=== PATIENT | male | born 1950 | race Caucasian/White ===

== ENCOUNTER → 2016-07-10 07:57 | Outpatient (CLI) | payer MEDICARE, MEDICAID ==
[2016-04-24 12:49] VITALS: BMI 22.9
[~2016-07-10 07:57] MED LIST: BAYER CHEWABLE81 MG PO; DEPAKOTE500 MG PO; ELAVIL25 MG; ELAVIL25 MG PO; FERROUS SULFAT325 MG PO; GLUCOPHAGE500 MG PO; HYDROCODONE-APA1 TAB PO; KEPPRA500 MG PO; MAXALT10 MG PO; MYSOLINE 50 MG50 MG PO; NEURONTIN600 MG; NEURONTIN600 MG PO; NITROQUICK0.4 MG SL; PERCOCET 10/3251 TA1 PO; PLAVIX75 MG PO; PROTONIX40 MG PO; SINGULAIR10 MG PO; TENORETIC 50 TA1 TAB PO; TENORMIN50 MG PO; TOPAMAX25 MG PO; TOPROL XL25 MG PO; ZANAFLEX4 MG PO; ZYPREXA15 MG PO
== END | disposition home or self-care (01) ==
LOC: D.RAD 07:57
DX: Z86.010 Personal history of colon polyps (principal)

== ENCOUNTER 2016-07-14 17:54 | Emergency (ER) | payer MEDICARE, MEDICAID ==
[2016-04-24 12:49] VITALS: BMI 22.9
[~2016-07-14 17:54] MED LIST changes: -FERROUS SULFAT325 MG PO
[2016-07-14 19:00] LABS: BASOPHILS 0.4 % (0.0-2.0); EOSINOPHILS 3.4 % (0-7); HEMATOCRIT 34.4 % (42.0-54.0); HEMOGLOBIN 10.9 g/dL (13.5-17.5); IMMATURE GRANULOCYTES 0.3 % (0-5); LYMPHOCYTES 32.7 % (15-50); MCH 26.1 pg (26.0-34.0); MCHC 31.7 g/dL (31.0-37.0); MCV 82.3 fL (80.0-100.0); MEAN PLATELET VOLUME 9.6 fL (7.4-10.4); MONOCYTES 10.3 % (2-11); NEUTROPHILS 52.9 % (40-80); PLATELET COUNT 269 10x3/uL (130-400); RBC 4.18 10x6/uL (4.20-6.10); RDW 17.4 % (11.5-14.5); WBC 6.8 10x3/uL (4.8-10.8)
[2016-07-14 19:39] LABS: ALBUMIN 3.4 g/dL (3.4-5.0); ALKALINE PHOSPHATASE 84 U/L (46-116); ALT (SGPT) 26 U/L (10-68); BILIRUBIN - TOTAL 0.25 mg/dL (0.2-1.3); CARBON DIOXIDE 30.2 mmol/L (21.0-32.0); CHLORIDE - SERUM 99 mmol/L (98-107); CREATININE - SERUM 0.9 mg/dL (0.6-1.3); POTASSIUM - SERUM 3.9 mmol/L (3.5-5.1); PROTEIN - SERUM 6.8 g/dL (6.4-8.2); SODIUM 135 mmol/L (136-145); UREA NITROGEN 7 mg/dL (7-18); eGFR NON AFRICAN AMERICAN > 90 mL/min (90-120)
[2016-07-14 19:43] LABS: CHOL - HDL RATIO 2.1 ratio (2.3-4.9); CHOLESTEROL, TOTAL 97 mg/dL (0-200); CKMB 0.9 U/L (0.0-3.6); CREATINE KINASE 99 UL (21-232); HDL CHOLESTEROL 46 mg/dL (32-96); LDL CHOLESTEROL 41 mg/dL (0-100); LDL-HDL RATIO 0.9 ratio (1.5-3.5); PRO BNP 490 pg/mL (0-125); TRIGLYCERIDE 52 mg/dL (30-200)
[2016-07-14 19:45] LABS: CALC OSMOLALITY 265 mosm/kg (275-300); TROPONIN-I < 0.017 ng/mL (0.000-0.060)
[2016-07-14 19:46] LABS: GLUCOSE 63 mg/dL (74-106)
[2016-07-14 20:13] LABS: APPEARANCE CLEAR (CLEAR); BILIRUBIN NEGATIVE (NEGATIVE); COLOR YELLOW (YELLOW); GLUCOSE NEGATIVE (NEGATIVE); KETONE NEGATIVE (NEGATIVE); LEUKOCYTE ESTERASE NEGATIVE (NEGATIVE); NITRITE NEGATIVE (NEGATIVE); PROTEIN NEGATIVE (NEGATIVE); UROBILINOGEN NORMAL (NORMAL)
== END 2016-07-14 22:08 | disposition home or self-care (01) ==
LOC: D.ER 17:54
PROVIDERS: Emergency Medicine; Physician Assistant
DX: R07.9 Chest pain, unspecified (principal); R05 Cough; E11.9 Type 2 diabetes mellitus without complications; I24.9 Acute ischemic heart disease, unspecified; I25.10 Atherosclerotic heart disease of native coronary artery without angina pectoris; F17.200 Nicotine dependence, unspecified, uncomplicated

== ENCOUNTER 2016-09-07 16:42 | Emergency (ER) | payer MEDICARE, MEDICAID ==
[2016-04-24 12:49] VITALS: BMI 22.9
[2016-09-07 18:17] LABS: BASOPHILS 0.3 % (0.0-2.0); EOSINOPHILS 1.7 % (0-7); HEMATOCRIT 33.6 % (42.0-54.0); HEMOGLOBIN 10.7 g/dL (13.5-17.5); IMMATURE GRANULOCYTES 0.2 % (0-5); LYMPHOCYTES 16.8 % (15-50); MCH 25.4 pg (26.0-34.0); MCHC 31.8 g/dL (31.0-37.0); MCV 79.6 fL (80.0-100.0); MEAN PLATELET VOLUME 9.2 fL (7.4-10.4); PLATELET COUNT 262 10x3/uL (130-400); RBC 4.22 10x6/uL (4.20-6.10); RDW 18.6 % (11.5-14.5); WBC 11.6 10x3/uL (4.8-10.8)
[2016-09-07 18:35] LABS: ALBUMIN 3.5 g/dL (3.4-5.0); ALKALINE PHOSPHATASE 88 U/L (46-116); ALT (SGPT) 17 U/L (10-68); BILIRUBIN - TOTAL 0.26 mg/dL (0.2-1.3); CALC OSMOLALITY 255 mosm/kg (275-300); CALCIUM 8.5 mg/dL (8.5-10.1); CARBON DIOXIDE 26.9 mmol/L (21.0-32.0); CHLORIDE - SERUM 95 mmol/L (98-107); CREATININE - SERUM 0.9 mg/dL (0.6-1.3); GLUCOSE 82 mg/dL (74-106); PROTEIN - SERUM 6.8 g/dL (6.4-8.2); SODIUM 129 mmol/L (136-145); UREA NITROGEN 6 mg/dL (7-18); eGFR NON AFRICAN AMERICAN > 90 mL/min (90-120)
[2016-09-07 18:42] LABS: CHOLESTEROL, TOTAL 85 mg/dL (0-200); CKMB 0.9 U/L (0.0-3.6); CREATINE KINASE 95 UL (21-232); HDL CHOLESTEROL 42 mg/dL (32-96); LDL CHOLESTEROL 30 mg/dL (0-100); LDL-HDL RATIO 0.7 ratio (1.5-3.5); TRIGLYCERIDE 68 mg/dL (30-200); TROPONIN-I < 0.017 ng/mL (0.000-0.060)
== END 2016-09-07 20:40 | disposition home or self-care (01) ==
LOC: D.ER 16:42
PROVIDERS: Emergency Medicine
DX: R07.9 Chest pain, unspecified (principal); I25.10 Atherosclerotic heart disease of native coronary artery without angina pectoris; D64.9 Anemia, unspecified; J45.909 Unspecified asthma, uncomplicated; I24.9 Acute ischemic heart disease, unspecified; E11.9 Type 2 diabetes mellitus without complications; F17.200 Nicotine dependence, unspecified, uncomplicated

== ENCOUNTER 2016-10-03 10:50 | Outpatient (CLI) | payer MEDICARE, MEDICAID ==
[~2016-10-03] VITALS: Ht 167.6 cm; Wt 72.7 kg
--- NOTE | ~2016-10-03 | HEMODYNAMI ---
PATIENT:SUNITHA DELGADO MEDICAL RECORD: [id number] : 54 LOCATION:NATE ADMISSION DATE: 10/03/16 Generatedon:10/03/201613:49 Patient name: SUNITHA DELGADO Patient #: [id number] SSN: : 1950 Date of study: 10/03/2016 Page: Of Hemodynamic Procedure Report Patient Data Patient Demographics Procedure consent was obtained First Name: SUNITHA Gender: Male Last Name: DANNY : 1950 [facility] Initial: L Age: 65 year(s) Patient #: [id number] Race: Additional ID: [id number] Contact details Address: [address] [place] [address] State: [place] City: [facility] Zip code: [address] Past Medical History History of disease Date Diagnosis Comments CAD CHF Chronic lung disease Allergies: No known allergies Admission Admission Data Admission Date: 10/03/2016 Admission Time: 10:50 Procedure Procedure Types Cath Procedure Diagnostic Procedure C LHC w/Coronaries Miscellaneous Procedures Moderate Sedation up to 15 minutes Procedure Description Procedure Date Procedure Date: 10/03/2016 Procedure Start Time: 13:31 Procedure End Time: 13:48 Procedure Staff Name Function Patrick Del Cid MD Performing Physician Jose Wilhelm RT Scrub Leida Villarreal RN Nurse Vidal Mckeon RT Monitor Procedure Data Cath Procedure Fluoroscopy Diagnostic fluoroscopy Total fluoroscopy Time: 3.4 time: 3.4 min min Diagnostic fluoroscopy Total fluoroscopy dose: dose: 159.57 mGy 159.57 mGy Contrast Material Contrast Material Type Amount (ml) Isovue 300 56 Entry Location Entry Primary Successful Side Size Upsize Upsize Entry Closure Abdul ccessful Closure Location (Fr) 1 (Fr) 2 (Fr) Remarks Device Remarks Radial Right 6 Fr Mechanical artery Short Compression Estimated blood loss: 10 ml Diagnostic catheters Device Type Used For End Catheter Placement Terumo 5Fr Albert 110cm Procedure catheter Procedure Complications No complications Procedure Medications Medication Administration Route Dosage Oxygen NC 2 l/min Heparin Flush Bag added to field 2 bags (1000units/500ml NS) Lidocaine 2% added to field 20 Radial Cocktail added to field 1 syringe (Verapomil 2mg/Nitro 400mcg/Heparin 1500units) Versed I.V. 1 mg Fentanyl I.V. 50 mcg Versed I.V. 1 mg Fentanyl I.V. 50 mcg Fentanyl I.V. 50 mcg Radial Cocktail I.A. 1 syringe (Verapomil 2mg/Nitro 400mcg/Heparin 1500units) Hemodynamics Rest Heart Rate: 70 (bpm) Pressure Samples Time Site Value (mmHg) Purpose Heart Use Rate(bpm) 13:37 LV 142/11,17 Snapshot 79 13:38 AO 79/54(66) Pullback 76 13:38 LV 123/16,20 Pullback 76 13:39 AO 77/50(62) Snapshot 77 Gradients Valve Time Site 1 Site 2 Mean SEP/DFP Peak To Heart Use (mmHg) (sec/min) Peak Rate (mmHg) (bpm) Aortic 13:38 LV AO 22 21 44 76 123/16,20 79/54(66) Calculations Valve P-P Mean Valve Index Valve Source Name Gradient Area Flow (cm2) Aortic 44 22 44 22 Snapshots Pre Cath Intra NCS Post Cath Vital Signs Time Heart Resp SPO2 NIBP Rhythm Pain Sedation Rate (ipm) (%) (mmHg) Status Level (bpm) 12:49:37 73 17 99 136/65(90) NSR 0 (11) 10(A) , No pain 12:53:57 69 13 99 110/73(93) NSR 0 (11) 10(A) , No pain 12:58:09 70 16 100 123/72(99) NSR 0 (11) 10(A) , No pain 13:02:23 73 16 98 126/65(96) NSR 0 (11) 10(A) , No pain 13:06:37 82 16 100 115/64(89) NSR 0 (11) 10(A) , No pain 13:10:49 72 16 100 110/62(81) NSR 0 (11) 10(A) , No pain 13:14:58 73 16 100 106/62(86) NSR 0 (11) 10(A) , No pain 13:19:15 72 16 99 95/55(74) NSR 0 (11) 10(A) , No pain 13:23:23 73 19 99 93/57(72) NSR 0 (11) 10(A) , No pain 13:27:30 72 16 99 103/60(74) NSR 0 (11) 10(A) , No pain 13:31:40 73 16 99 91/59(83) NSR 0 (11) 9(A) , No pain 13:35:52 76 16 99 94/47(69) NSR 0 (11) 9(A) , No pain 13:40:04 77 16 99 93/46(69) NSR 0 (11) 9(A) , No pain 13:44:14 75 16 99 92/57(76) NSR 0 (11) 9(A) , No pain 13:48:22 92/59(69) NSR 0 (11) 9(A) , No pain Medications Time Medication Route Dose Verified Delivered Reason Notes Effectiveness by by 12:48:26 Oxygen NC 2 l/min Patrick Leida Per Maria EugeniaShay Villarreal RN physician 12:48:35 Heparin Flush added 2 bags Patrick Patrick used for Bag to [facility] procedure (1000units/500ml field MD JAMES NS) 12:48:43 Lidocaine 2% added 20ml Patrick Patrick used for to vial [facility] procedure field MD JAMES 12:48:55 Radial Cocktail added 1 Patrick Patrick used for (Verapomil to syringe [facility] procedure 2mg/Nitro field MD JAMES 400mcg/Heparin 1500units) 13:21:52 Versed I.V. 1 mg Patrick Leida for sedation [facility] Sh[facility] Villarreal RN, MD 13:22:00 Fentanyl I.V. 50 mcg Patrick Leida for sedation [facility] Shay Villarreal RN, MD 13:24:51 Versed I.V. 1 mg Patrick Leida for sedation [facility] Shay Villarreal RN, MD 13:24:54 Fentanyl I.V. 50 mcg Patrick Leida for sedation [facility] Shay Villarreal RN, MD 13:29:45 Fentanyl I.V. 50 mcg Patrick Leida for sedation [facility] Shay Villarreal RN, MD 13:35:15 Radial Cocktail I.A. 1 Patrick Patrick for (Verapomil syringe [facility] Shay Del Cid vasodilation 2mg/Nitro MD JAMES 400mcg/Heparin 1500units) Procedure Log Time Note 12:23:25 ACC Patient presents with Stable Angina CCS Anginal Class 2--Slight limitation of ordinary activity. 12:23:27 Diagnostic Cath status Elective 12:23:31 Time tracking: Regular hours 12:23:34 Plan of Care:Hemodynamics will remain stable., Cardiac rhythm will remain stable., Comfort level will be maintained., Respiratory function will remain adequate., Patient/ family verbilizes understanding of procedure., Procedure tolerated without complication., Recovers from procedure without complications.. 12:30:30 Jose Wilhelm RT(R) sent for patient. Start room use. 12:41:12 Patient received from Pre/Post Procedure Room to CCL 3 Alert and oriented. Tansferred to table in Supine position. 12:41:13 Warm blankets applied, and daniele hugger turned on for patient comfort. 12:41:13 Correct patient and procedure confirmed by team. 12:41:14 Signed procedure consent form obtained from patient. 12:41:15 ECG and BP/O2 sat monitors applied to patient. 12:41:16 Full Disclosure recording started 12:48:16 Vital chart was started 12:48:26 Oxygen 2 l/min NC was administered by Leida Villarreal RN; Per physician; 12:48:35 Heparin Flush Bag (1000units/500ml NS) 2 bags added to field was administered by Patrick Del Cid MD; used for procedure; 12:48:43 Lidocaine 2% 20ml vial added to field was administered by Patrick Del Cid MD; used for procedure; 12:48:55 Radial Cocktail (Verapomil 2mg/Nitro 400mcg/Heparin 1500units) 1 syringe added to field was administered by Patrick Del Cid MD; used for procedure; 12:54:42 Baseline sample Acquired. 12:54:45 Rhythm: sinus rhythm 12:55:07 H&P Date Dictated: 09/14/2016 Within 30 days and on chart., H&P Addendum completed by physician on day of procedure. (MUST COMPLETE FOR ALL OUTPATIENTS). 12:55:08 Pre-procedure instructions explained to patient. 12:55:08 Pre-op teaching completed and patient verbalized understanding. 12:55:10 Family in waiting room. 12:55:12 Patient NPO since Midnight. 12:55:14 Is the patient allergic to Iodine/contrast media? No. 12:55:52 Is patient on blood thinner?Yes 12:56:04 ACC The patient was administered the following blood thiners within the last 24 hours: ACCPlavix 12:56:34 Patient diabetic? Yes. 12:56:39 If diabetic: On Metformin? Yes 12:56:52 Previous problem with sedation/anesthesia? No ? 12:56:58 Snore? Yes 12:57:00 Sleep apnea? No 12:57:01 Deviated septum? No 12:57:01 Opens mouth fully? Yes 12:57:02 Sticks out tongue? Yes 12:57:04 Airway obstruction? No ? 12:57:07 Dentures? Yes IN 12:57:18 Pre procedure: right dorsailis pedis pulse 1+ Palpable, but thready & weak; easily obliterated 12:57:21 Modified Koby's test Ulnar < 7 seconds 12:57:22 Patient pain scale 0/10 ?. 12:57:25 IV patent on arrival in left forearm with 0.9% NaCl at O. 12:57:27 Lab results completed and on chart. 12:57:30 Right Radial & Right Groin area was prepped with chlora-prep and draped in sterile fashion 12:57:31 Alarms reviewed by R. N. 12:57:32 Sharps counted by scrub and verified by R.N. 12:58:43 Physician paged 13:21:16 --------ALL STOP TIME OUT------ 13:21:17 Final Timeout: patient, procedure, and site verified with staff and physician. All members of the team are in agreement. 13:21:19 Right Radial & Right Groin site verified by team. 13:21:22 Physical assessment completed. ASA score P 2 - A patient with mild systemic disease as per Patrick Del Cid MD. 13:21:26 Sedation plan: IV Moderate Sedation Versed, Fentanyl 13:21:47 Use device set Radial Dx 13:21:49 Acist Manifold opened to sterile field. 13:21:50 Tegaderm 4 x 4 opened to sterile field. 13:21:50 Acist Hand Control opened to sterile field. 13:21:51 Acist Syringe opened to sterile field. 13:21:52 Versed 1 mg I.V. was administered by Leida Villarreal RN; for sedation; 13:21:52 Medline Cath Pack opened to sterile field. 13:21:52 Bag Decanter opened to sterile field. 13:21:53 Terumo 6Fr Slender Glidesheath opened to sterile field. 13:21:53 St Naveed 260cm J .035 wire opened to sterile field. 13:21:53 MBrace Wrist Support opened to sterile field. 13:22:00 Fentanyl 50 mcg I.V. was administered by Leida Villarreal RN; for sedation; 13:22:05 Procedure type changed to Cath procedure, Diagnostic procedure, LHC, LHC w/Coronaries, Miscellaneous Procedures, Moderate Sedation up to 15 minutes 13:24:51 Versed 1 mg I.V. was administered by Leida Villarreal RN; for sedation; 13:24:54 Fentanyl 50 mcg I.V. was administered by Leida Villarreal RN; for sedation; 13:29:45 Fentanyl 50 mcg I.V. was administered by Leida Villarreal RN; for sedation; 13:31:00 Procedure started. 13:31:06 Local anesthetic to right radial artery with Lidocaine 2% by Patrick Del Cid MD.INITIAL ACCESS ONLY 13:34:36 A 6 Fr Short sheath was inserted into the Right Radial artery 13:35:15 Radial Cocktail (Verapomil 2mg/Nitro 400mcg/Heparin 1500units) 1 syringe I.A. was administered by Patrick Del Cid MD; for vasodilation; 13:35:21 A Terumo 5Fr Albert 110cm catheter was advanced over the wire and used for Procedure. 13:38:01 LV angiography performed. 13:38:02 LV gram done using ROSALES 13:38:28 EF : 55 % 13:39:02 Injector settings: Ml/sec: 5, Volume: 15, 13:39:15 LV hemodynamics recorded. 13:39:22 LCA angiography performed. 13:40:39 Catheter exchanged over wire. 13:41:40 ImageVisiontronic Launcher 6Fr AR 1.0 guide catheter opened to sterile field. 13:42:00 6 Fr AR 1 guide catheter was inserted over the wire 13:42:43 RCA angiography performed. 13:43:02 Catheter exchanged over wire. 13:43:10 Terumo TR Band Standard opened to sterile field. 13:43:21 Sheath removed intact; hemostasis achieved with Mechanical Compression to the Right Radial artery. 13:43:24 Procedure ended.(Physican Out) 13:43:40 Fluoroscopy time 03.40 minutes. 13:43:45 Fluoroscopy dose: 159.57 mGy 13:43:45 Flurop Dose total: 159.57 13:43:49 Contrast amount:Isovue 300 56ml. 13:44:05 Sharps counted by scrub and verified by R.N. 13:44:26 TR band inflated with 10cc of air. 13:44:28 Insertion/operative site no bleeding no hematoma. 13:44:29 Post Procedure Pulses reassessed and unchanged 13:45:07 Post-procedure physical assessment completed. ASA score P 2 - A patient with mild systemic disease as per Patrick Del Cid MD. 13:45:10 Post procedure rhythm: unchanged. 13:45:13 Estimated blood loss: 10 ml 13:45:15 Post procedure instruction explained to patient.Patient verbalizes understanding. 13:45:16 Patient needs reinforcement of post procedure teaching. 13:45:21 Procedure Complication : No complications 13:45:44 Procedure and supply charges have been captured, reviewed, submitted and are correct. 13:48:24 Vital chart was stopped 13:48:24 See physician's report for complete and final results. 13:48:28 Report given to Pre/Post Procedure Room. 13:48:31 Patient transfered to Pre/Post Procedure Room with Stretcher. 13:48:34 Procedure ended. 13:48:34 Full Disclosure recording stopped 13:48:40 End room use (Document Last) Device Usage Item Name Manufacture Quantity Catalog Hospital Part Current Minimal Lot# / Number Charge Number Stock Stock Serial# Code Acist Acist 1 21916 728147 383197 248421 5 Manifold Medical [employer] Inc Tegaderm 4 3M 1 1626W 627990 577809 148443 5 x 4 Acist Hand Acist 1 00086 325837 651911 303963 5 Control Medical Systems Inc Acist Acist 1 04347 358477 389775 796923 20 Syringe Medical Systems Inc Medline Cardinal 1 [id number] 975120 28609 662534 5 Cath Pack Health Bag Microtek 1 869440 35854 745223 5 Loudr Inc. Terumo 6Fr Terumo 1 [id number] 527349 385708 778840 [address] N[address] St Naveed 1 117727 334719 406656 079460 30 260cm J .035 wire MBrace Advanced 1 140-0250-00 870268 20982 980649 5 Wrist Vascular Support Dynamics Terumo 5Fr Terumo 1 98-1199 283883 251000 535450 5 Albert 110cm catheter Medtronic Medtronic 1 [id number] 549241 35450 750157 1 Launcher 6Fr AR 1.0 guide catheter Terumo TR Terumo 1 [id number] 817941 766758 178122 40 Band Standard Signature Audit [place] Stage Time Signature Unsigned Intra-Procedure 10/03/2016 Vidal Mckeon 1:49:03 PM RT(R) Signatures Monitor : Vidal Mckeon RT Signature : Date : Time : [place] [id number] [place], [place] [address]
[2016-10-03 11:30] VITALS: BP 116/66; Ht 167.6 cm; Wt 72.7 kg
[2016-10-03] MEDS ORDERED: FERROUS SULFAT325 MG PO (11:38)
[2016-10-03 11:40] LABS: BASOPHILS 0.5 % (0.0-2.0); EOSINOPHILS 2.2 % (0-7); HEMATOCRIT 39.7 % (42.0-54.0); IMMATURE GRANULOCYTES 0.5 % (0-5); LYMPHOCYTES 27.2 % (15-50); MCH 27.7 pg (26.0-34.0); MCHC 32.7 g/dL (31.0-37.0); MCV 84.5 fL (80.0-100.0); MEAN PLATELET VOLUME 9.1 fL (7.4-10.4); MONOCYTES 10.5 % (2-11); NEUTROPHILS 59.1 % (40-80); PLATELET COUNT 260 10x3/uL (130-400)
[2016-10-03 11:56] LABS: CALC OSMOLALITY 261 mosm/kg (275-300); CALCIUM 9.5 mg/dL (8.5-10.1); CARBON DIOXIDE 25.9 mmol/L (21.0-32.0); CHLORIDE - SERUM 99 mmol/L (98-107); CREATININE - SERUM 0.9 mg/dL (0.6-1.3); GLUCOSE 106 mg/dL (74-106); POTASSIUM - SERUM 4.6 mmol/L (3.5-5.1); SODIUM 131 mmol/L (136-145); UREA NITROGEN 10 mg/dL (7-18); eGFR NON AFRICAN AMERICAN > 90 mL/min (90-120)
--- NOTE | 2016-10-03 15:28 | NUR ---
1415-TR BAND INTACT, NO BLEEDING 1445-NO CHANGES
--- NOTE | 2016-10-03 16:24 | NUR ---
1550- IV D'C WITH CATH TIP INTACT, TR BAND OFF - BAND AID APPLIED AND BRACE IN USE- REMINDED TO NOT USE RIGHT HAND, WRITTEN AND VERBAL INSTRUCTIONS GIVEN TO PT AND .
--- NOTE | 2016-10-04 08:42 | OP ---
PATIENT NAME: SUNITHA DELGADO MEDICAL RECORD: [id number] :54 LOCATION:D.CAT ADMISSION DATE: SURGEON: CT GIVENS MD DATE OF OPERATION: 10/03/2016 PROCEDURE: Left heart catheterization, selective coronary angiography, and right radial approach. CATHETERS: [place] catheter. The procedure was well tolerated. The patient returned to the bradley. Sheath was removed. TR band was placed. FINDINGS: Left ventriculography in 30-degree ROSALES view: Normal wall motion and normal systolic function. Of note, there is a 45-mm gradient across the aortic valve consistent with ____ approaching severe . CORONARY ANATOMY: LEFT MAIN: Left main is free of disease. LAD: LAD is free of disease. Area of previous stenting is widely patent. CIRCUMFLEX: Free of disease. RIGHT CORONARY ARTERY: Free of disease. Previously placed stent widely patent. IMPRESSION: Suspect angina is coming from aortic stenosis, approaching replacement at some point in time. No evidence of coronary artery disease at this point. TRANSINT:[id number] Voice Confirmation ID: [id number] DOCUMENT ID: [id number] CT GIVENS MD at 0842 CC: [id number] DICTATION DATE: 10/03/16 1352 PAGE TECHNICIAN: 10/03/16 1409 DEP CLI 10/03/16 [place] [id number] [place] [address]
== END 2016-10-03 16:00 | disposition home or self-care (01) ==
LOC: D.CATH 10:50
PROVIDERS: Internal Medicine Interventional Cardiology
DX: I35.0 Nonrheumatic aortic (valve) stenosis (principal); I20.9 Angina pectoris, unspecified; Z95.5 Presence of coronary angioplasty implant and graft

== ENCOUNTER → 2017-01-08 10:02 | Outpatient (CLI) | payer MEDICARE, MEDICAID ==
[2016-10-03 11:30] VITALS: BMI 25.8
[~2017-01-08 10:02] MED LIST changes: +FERROUS SULFAT325 MG PO
== END | disposition home or self-care (01) ==
LOC: D.RT 10:00
DX: J44.9 Chronic obstructive pulmonary disease, unspecified (principal)

== ENCOUNTER 2017-07-20 16:20 | Observation (INO) | payer MEDICARE, MEDICAID ==
[~2017-07-20] VITALS: Ht 167.6 cm; Wt 65.6 kg
--- NOTE | ~2017-07-20 | HP ---
PATIENT: SUNITHA DELGADO MEDICAL RECORD: [id number] ACCOUNT: [id number] LOCATION:[address] : [birth year] ADMISSION DATE: 07/20/17 HISTORY AND PHYSICAL EXAMINATION DATE OF ADMISSION: 07/20/2017 CHIEF COMPLAINT: Chest pain. HISTORY OF PRESENT ILLNESS: This is a 66-year-old white male with a known history of coronary artery disease. He states he has 6 stents. He has diabetes. He comes to my office today complaining of chest pain for the last 3 days. He states he has had shortness of breath and some nausea. He states pain radiates up to the jaw and up the left arm. With those symptoms and his past history, I elected to directly admit him to observation at [facility] where his stubber is. PAST MEDICAL AND SURGICAL HISTORY: Coronary artery disease with history of stents. Dr. Del Cid is his usual stubber. He has hyperlipidemia, well controlled diabetes, hypertension, chronic back pain, history of migraine headaches, seizure disorder, and bipolar disorder. PAST SURGICAL HISTORY: Cholecystectomy, tonsillectomy, and stents. ALLERGIES: None known. CURRENT MEDICATIONS: Include Lawrence 10/325 four times a day p.r.n. pain, metformin 500 mg twice a day, clopidogrel 75 mg once a day, Elavil 25 mg at bedtime, atenolol 50 mg once a day, tizanidine 4 times a day p.r.n. pain, atorvastatin 10 mg at bedtime, Singulair 10 mg daily, Zyprexa 15 mg twice a day, primidone 50 mg one pill twice a day, Keppra 500 mg 3 in the morning and 3 in the evening, divalproex ER 500 mg 3 times a day, Protonix 40 mg once a day, Topamax 25 mg twice a day, and gabapentin 600 mg 4 times a day. HABITS: He is a current smoker or vapes. No history of alcohol or drug use. SOCIAL HISTORY: He is disabled and lives with his . FAMILY HISTORY: Father , he had coronary artery disease and hypertension. Mother , she had coronary artery disease, diabetes, and hypertension. REVIEW OF SYSTEMS: GENERAL: No major weight changes. HEENT: No particular sinus or allergy problems. RESPIRATORY: He has some COPD issues. CARDIAC: See above history. GASTROINTESTINAL: No significant ongoing problems. He has some reflux. GENITOURINARY: No significant problems there. MUSCULOSKELETAL: Chronic back pain. NEUROLOGIC: He has migraine headaches. PSYCHIATRIC: History of depression/bipolar. PHYSICAL EXAMINATION: VITAL SIGNS: Temperature 98.1, pulse 85, respirations 20, blood pressure 119/65, O2 sat 95% on room air. He does not appear to be in acute distress. He HISTORY AND PHYSICAL [id number] SUNITHA DELGADO is awake and alert. HEENT: Grossly within normal limits. NECK: Supple. No JVD or bruit. HEART: Regular rate and rhythm without murmur. LUNGS: Clear. ABDOMEN: Soft, flat, nontender. EXTREMITIES: No edema. ASSESSMENT: Chest pain in a diabetic with a known history of coronary artery disease. PLAN: We will directly admit to [facility] and consult cardiology. Other tests and procedures as warranted. TRANSINT:[id number] Voice Confirmation ID: [id number] DOCUMENT ID: [id number] ROHITH BORJA MD at 1332 CC: [id number] DICTATION DATE: 07/21/17 1456 MICROFILM DUPLICATING UNIT SUPERVISOR: 07/21/17 1549 DIS IN 07/23/17 [facility] [address] [place] [address]
--- NOTE | ~2017-07-20 | HP ---
PATIENT: SUNITHA DELGADO MEDICAL RECORD: [id number] ACCOUNT: [id number] LOCATION:[address] : 54 ADMISSION DATE: 07/20/17 HISTORY AND PHYSICAL EXAMINATION DIAGNOSES: 1. Unstable angina. 2. Coronary artery disease. 3. Previous multivessel percutaneous transluminal coronary angioplasty stent. 4. Seizure disorder. 5. Hypertension. 6. Hyperlipidemia. 7. Gastroesophageal reflux disease. HISTORY OF PRESENT ILLNESS: Mr. Delgado is a gentleman known to us with a past history of coronary artery disease, previous multivessel PTCA stent, since 2 days, he has been having increasing episodes of chest pain, chest discomfort with angina in an escalating unstable fashion. REVIEW OF SYSTEMS: The patient reports easy bruising but reports no swollen glands. The patient reports no fever, no night sweats, no significant weight gain, no significant weight loss. No significant exercise tolerance. The patient reports no dry eyes, no irritation, no vision change. Patient reports no difficulty hearing and no ear pain. Patient reports no frequent nose bleeds or nose and sinus problems. Patient reports on arm pain on exertion. No shortness of breath while lying down. No history of heart murmur. Patient reports no cough, no wheezing or coughing up blood. Patient reports no abdominal pain, no vomiting. Normal appetite. No diarrhea and not vomiting blood. No nausea and no constipation. Patient reports no incontinence. No difficulty urinating. No hematuria. No increased frequency. Patient reports no muscle aches. No weakness, no arthralgias, no back pain. No swelling of the extremities. Patient reports no abnormal mole, no jaundice, no rashes. Reports no loss of consciousness. No weakness and no numbness. No seizures, dizziness, or headaches. The patient reports no depression, no sleep disturbance, feeling safe in a relationship and no alcohol abuse. Patient reports on fatigue. Reports no runny nose or sinus pressure. No itching, no hives, and no frequent sneezing. PHYSICAL EXAMINATION: GENERAL APPEARANCE: Well-nourished, well-developed, appears stated age. Level of distress, comfortable. PSYCHIATRIC: Mental status, alert, normal affect. Orientation, oriented to time, place and person. EYES: Lids and conjunctiva, noninjected. No discharge, no pallor. ENT: Lips, teeth, gums, normal dentition. Oropharynx, no cyanosis, no pallor. NECK: Carotid arteries, bilateral normal upstroke, no bruits, no thrills. JUGULAR VEINS: No jugular venous pressure or distention. CERVICAL LYMPH NODES: Nontender, nonenlarged. THYROID: Not enlarged. Nontender. No nodules. LUNGS: Respiratory effort, unlabored. CHEST: Normal curvature. No thoracic deformity. No chest wall tenderness. Percussion, resonant. Auscultation, clear. No wheezes, no rales, no rhonchi. CARDIOVASCULAR: Precordial exam, nondisplaced. No heaves or pericardial thrills. Rate and rhythm, regular. Heart sounds, normal S1, normal S2. No S3, no gallop, no rub. Systolic murmur, not heard. Diastolic murmur, not heard. HISTORY AND PHYSICAL [id number] SUNITHA DELGADO EXTREMITIES: No cyanosis, no edema. Peripheral pulses, full and equal in all extremities, except as noted. No bruits appreciated. ABDOMEN: Soft, nondistended. Normal aorta. No bruit. Nontender. No masses. Liver, nontender, no hepatomegaly. Spleen, nontender, no splenomegaly. MUSCULOSKELETAL: No joint tenderness. No joint swelling. No erythema. NEUROLOGICAL: Normal gait, normal strength, normal tone. SKIN: Warm and dry. OVERALL IMPRESSION: Unstable angina, most likely he has recurrent hemodynamically significant coronary artery disease. We will proceed with coronary angiography in the near future. Further care depends upon findings of the angiography. TRANSINT:[id number] Voice Confirmation ID: [id number] DOCUMENT ID: [id number] SHAWN BAUER MD at 1025 CC: [id number] DICTATION DATE: 07/21/17 1122 TYRE FINISHER AND EXAMINER: 07/21/17 1157 DIS IN 07/23/17 [facility] [address] [place] [address]
--- NOTE | ~2017-07-20 | DS ---
PATIENT:SUNITHA DELGADO :54 MEDICAL RECORD: [id number] DISCHARGE SUMMARY ADMISSION DATE: 07/20/17 DISCHARGE DATE: 07/23/17 DIAGNOSES: 1. Unstable angina. 2. Coronary artery disease. 3. Percutaneous transluminal coronary angioplasty stent of right coronary artery this admission. 4. Hypertension. 5. Hyperlipidemia. HOSPITAL COURSE: Mr. Delgado presents with unstable anginal symptomatology, found to have significant disease to the RCA, underwent successful PTCA stent of the RCA. Had an uneventful postop course. He was discharged home to follow up with [facility] in 1 month with the addition of Plavix to the medical regimen. TRANSINT:[id number] Voice Confirmation ID: [id number] DOCUMENT ID: [id number] SHAWN BAUER MD at 1025 CC: [id number] DICTATION DATE: 07/23/17 1129 RESIDENT CARE DIRECTOR: 07/23/17 2229 DIS IN 07/23/17 [place] [address] [place] [address]
--- NOTE | ~2017-07-20 | HEMODYNAMI ---
PATIENT:SUNITHA DELGADO MEDICAL RECORD: [id number] : 54 [facility] [id number] ADMISSION DATE: 07/20/17 Generatedon:07/23/201711:29 Patient name: SUNITHA DELGADO Patient #: [id number] SSN: : 1950 Date of study: 07/23/2017 Page: Of Hemodynamic Procedure Report Patient Data Patient Demographics Procedure consent was obtained First Name: SUNITHA Gender: Male Last Name: DANNY : 1950 Middle Initial: L Age: 66 year(s) Patient #: [id number] Race: Additional ID: [id number] Contact details Address: [address] [place] [address] State: [place] City: [facility] Zip code: [address] Past Medical History History of disease Date Diagnosis Comments CAD CHF Chronic lung disease Allergies: No known allergies Admission Admission Data Admission Date: 07/20/2017 Admission Time: 16:20 Room #: D.2116 Lab Results Lab Result Date: 07/23/2017 Lab Result Time: 0:00 Biochemistry Name Units Result Min Max BUN mg/dl 8 --(*---)-- 7 18 Creatinine mg/dl 1 --(--*-)-- 0.6 1.3 CBC Name Units Result Min Max Hemoglobin g/dl 14.5 --(*---)-- 13.5 17.5 Procedure Procedure Types Cath Procedure Diagnostic Procedure LHC LHC w/Coronaries PCI Procedure Coronary Stent Miscellaneous Procedures Moderate Sedation up to 15 minutes Procedure Description Procedure Date Procedure Date: 07/23/2017 Procedure Start Time: 11:13 Procedure End Time: 11:27 Procedure Staff Name Function Derrick Cool MD Performing Physician Juana Ly RT Monitor America Mayberry RT Scrub Deonna Ramsey RN Nurse Indication Angina Procedure Data Cath Procedure Fluoroscopy Diagnostic fluoroscopy Total fluoroscopy Time: 2 time: 2 min min Diagnostic fluoroscopy Total fluoroscopy dose: 573 dose: 573 mGy mGy Contrast Material Contrast Material Type Amount (ml) Isovue 300 71 Entry Location Entry Primary Successful Side Size Upsize Upsize Entry Closure Succes sful Closure Location (Fr) 1 (Fr) 2 (Fr) Remarks Device Remarks Femoral Right 5 Fr 6 Fr Exoseal artery Short Estimated blood loss: 10 ml Diagnostic catheters Device Type Used For End Catheter Placement MULTIPACK Pigtail 5 Fr Procedure catheter MULTIPACK JL 4.0 5Fr Procedure catheter MULTIPACK 3DRC 5Fr Procedure catheter Procedure Complications No complications Procedure Medications Medication Administration Route Dosage 0.9% NaCl I.V. 100 ml/hr Oxygen NC 2 l/min Lidocaine 2% added to field 20 Heparin Flush Bag added to field 2 bags (1000units/500ml NS) Radial Cocktail added to field 1 syringe (Verapomil 2mg/Nitro 400mcg/Heparin 1500units) Versed I.V. 0.5 mg Fentanyl I.V. 25 mcg Heparin Bolus I.V. 4000 units Hemodynamics Rest HGB: 14.5 (g/dl) Heart Rate: 67 (bpm) Snapshots Pre Cath Intra NCS Post Cath Vital Signs Time Heart Resp SPO2 etCO2 NIBP Rhythm Pain Sedation Rate (ipm) (%) (mmHg) (mmHg) Status Level (bpm) 10:56:14 68 21 98 0 116/66(93) NSR 0 (11) 10(A) , No pain 11:00:22 68 21 95 17 120/70(91) NSR 0 (11) 10(A) , No pain 11:04:34 67 20 97 37.1 113/63(87) NSR 0 (11) 10(A) , No pain 11:08:44 68 18 99 41.6 111/61(91) NSR 0 (11) 10(A) , No pain 11:12:52 67 18 99 37.1 113/64(88) NSR 0 (11) 9(A) , No pain 11:16:59 68 17 99 38.5 109/63(85) NSR 0 (11) 9(A) , No pain 11:21:05 73 18 98 39.3 126/69(95) NSR 0 (11) 10(A) , No pain 11:25:19 70 8 98 38.5 105/60(82) NSR 0 (11) 10(A) , No pain Medications Time Medication Route Dose Verified Delivered Reason Note s Effectiveness by by 10:58:36 0.9% NaCl I.V. 100 Derrick Ying used for ml/hr Travon Ramsey RN procedure 10:58:47 Oxygen NC 2 l/min Derrick Ying Per physician Travon Ramsey RN 10:58:53 Lidocaine 2% added 20ml Derrick Derrick for local to vial Travon Cool MD anesthetic field 10:59:01 Heparin Flush added 2 bags Derrick Meza used for Bag to Travon Cool MD procedure (1000units/500ml field NS) 10:59:13 Radial Cocktail added 1 Derrick Derrick for not (Verapomil to syringe Travon Cool MD vasodilation used. 2mg/Nitro field access 400mcg/Heparin femoral 1500units) 11:10:07 Versed I.V. 0.5 mg Derrick Ying for sedation Travon Ramsey RN 11:10:18 Fentanyl I.V. 25 mcg Derrick Ying for sedation Travon Ramsey RN 11:19:19 Heparin Bolus I.V. 4000 Derrick Ying for veri fied units Travon Ramsey RN anticoagulation by Procedure Log Time Note 10:42:45 Informed consent obtained and on chart 10:42:50 Diagnostic Cath Status : Elective 10:43:20 Indication : Angina 10:43:24 Juana Ly RT(R) sent for patient. Start room use. 10:43:25 Time tracking: Regular hours 10:43:28 Plan of Care:Hemodynamics will remain stable., Cardiac rhythm will remain stable., Comfort level will be maintained., Respiratory function will remain adequate., Patient/ family verbilizes understanding of procedure., Procedure tolerated without complication., Recovers from procedure without complications.. 10:43:53 Lab Result : BUN 8 mg/dl 10:43:53 Lab Result : Hemoglobin 14.5 g/dl 10:43:53 Lab Result : Creatinine 1 mg/dl 10:46:15 Patient received from Med II to CCL 2 Alert and oriented. Tansferred to table in Supine position. 10:46:16 Warm blankets applied, and daniele hugger turned on for patient comfort. 10:46:17 Correct patient and procedure confirmed by team. 10:46:18 ECG and BP/O2 sat monitors applied to patient. 10:55:12 Vital chart was started 10:58:36 0.9% NaCl 100 ml/hr I.V. was administered by Deonna Ramsey RN; used for procedure; 10:58:47 Oxygen 2 l/min NC was administered by Deonna Ramsey RN; Per physician; 10:58:53 Lidocaine 2% 20ml vial added to field was administered by Derrick Cool MD; for local anesthetic; 10:59:01 Heparin Flush Bag (1000units/500ml NS) 2 bags added to field was administered by Derrick Cool MD; used for procedure; 10:59:07 Baseline sample Acquired. 10:59:12 Rhythm: sinus rhythm 10:59:13 Radial Cocktail (Verapomil 2mg/Nitro 400mcg/Heparin 1500units) 1 syring e added to field was administered by Derrick Cool MD; for vasodilation; not used. access femoral 10:59:13 Full Disclosure recording started 10:59:23 H&P Date Dictated: 07/21/2017 Within 30 days and on chart.. 10:59:24 Pre-procedure instructions explained to patient. 10:59:26 Pre-op teaching completed and patient verbalized understanding. 10:59:30 Family in patients room. 10:59:32 Patient NPO since Breakfast. 11:01:44 Is the patient allergic to Iodine/contrast media? No. 11:01:46 Was the patient premedicated? Yes 11:01:54 Is patient on blood thinner?Yes 11:01:59 ACC The patient was administered the following blood thiners within the last 24 hours: ACCPlavix 11:02:23 Patient diabetic? Yes. 11:02:25 If diabetic: On Metformin? Yes 11:02:29 If on Metformin: Last Dose? 07/21/2017 11:02:35 Snore? Yes 11:02:36 Sleep apnea? No 11:02:42 Dentures? Yes in tight 11:02:55 IV patent on arrival in left forearm with 0.9% NaCl at [facility]. 11:03:03 Lab results completed and on chart. 11:03:07 Right Radial & Right Groin area was prepped with chlora-prep and draped in sterile fashion 11:03:08 Alarms reviewed by RWoo NWoo 11:03:09 Sharps counted by scrub and verified by RWooNWoo 11:03:10 - 11:09:36 Zero performed for pressure channel P1 11:09:45 Physician arrived 11:09:46 --------ALL STOP TIME OUT------ 11:09:47 Final Timeout: patient, procedure, and site verified with staff and physician. All members of the team are in agreement. 11:09:52 Right Radial & Right Groin site verified by team. 11:10:06 Physical assessment completed. ASA score P 2 - A patient with mild systemic disease as per Derrick Cool MD. 11:10:07 Versed 0.5 mg I.V. was administered by Deonna Ramsey RN; for sedation; 11:10:12 Sedation plan: IV Moderate Sedation Medication:Versed, Fentanyl 11:10:18 Fentanyl 25 mcg I.V. was administered by Deonna Ramsey RN; for sedation; 11:10:27 Use device set Radial Dx or PCI 11:10:29 ACIST Syringe (45013) opened to sterile field. 11:10:30 Medline Cath Pack ([id number]) opened to sterile field. 11:10:33 Bag Decanter (2002S) opened to sterile field. 11:10:34 SHEATH 6FR Slender ([id number]) opened to sterile field. 11:10:35 DIAGNOSTIC WIRE .035 260cm J wire (308042) opened to sterile field. 11:10:36 ACIST Hand Control (77159) opened to sterile field. 11:10:37 ACIST Manifold (10322) opened to sterile field. 11:10:38 Tegaderm 4 x 4 (1626W) opened to sterile field. 11:10:39 MBrace Wrist Support ([id number]) opened to sterile field. 11:11:17 STOPCOCK 3-Way Large Bore (O85706) opened to sterile field. 11:13:29 Procedure started. 11:13:46 Local anesthetic to right femoral artery with Lidocaine 2% by Derrick Cool MD.INITIAL ACCESS ONLY 11:13:59 Use device set Multipack Set 11:14:06 SHEATH 5FR Oneida (MDR351) opened to sterile field. 11:14:08 DIAGNOSTIC Multipack 5Fr catheter set (HH6511) opened to sterile field. 11:14:54 A 5 Fr sheath was inserted into the Right Femoral artery 11:16:07 A MULTIPACK Pigtail 5 Fr catheter was advanced over the wire and used for Procedure. 11:16:09 LV angiography performed. 11:16:14 EF : 55 % 11:16:24 LV hemodynamics recorded. 11:16:49 A MULTIPACK JL 4.0 5Fr catheter was advanced over the wire and used for Procedure. 11:17:28 LCA angiography performed. 11:17:44 Catheter removed. 11:17:54 A MULTIPACK 3DRC 5Fr catheter was advanced over the wire and used for Procedure. 11:18:16 RCA angiography performed. 11:18:17 Catheter removed. 11:18:55 INFLATOR Merit BasixCompak (XY3347) opened to sterile field. 11:18:56 SHEATH 6FR One[place] (TMC051) opened to sterile field. 11:19:14 Sheath upsized to a 6 Fr Short. 11:19:19 Heparin Bolus 4000 units I.V. was administered by Deonna Ramsey RN; for anticoagulation; verified by 11:19:44 6 Fr 3DRC guide catheter was inserted over the wire 11:20:20 CHOICE PT Extra Support 182cm wire ([id number]) opened to sterile field. 11:20:57 Choice PT wire advanced. 11:20:58 Wire advanced across lesion. 11:22:50 Inflation Number: 1 A COURTNEY RX 4.0 x 12 stent ([id number]) was prepped and advanced across the Mid RCA. The stent was deployed at 15 SCOTTIE for 0:15 (min:sec). 11:23:08 EXOSEAL 6Fr (EX600) opened to sterile field. 11:23:18 Wire removed. 11:23:19 Guide catheter removed. 11:23:58 Sheath removed intact; hemostasis achieved with Exoseal to the Right Femoral artery. 11:24:01 Procedure ended.(Physican Out) 11:24:14 Fluoroscopy time 02.00 minutes. 11:24:26 Fluoroscopy dose: 573 mGy 11:24:26 Flurop Dose total: 573 11:24:33 Contrast amount:Isovue 300 71ml. 11:24:34 Sharps counted by scrub and verified by R.N. 11:24:40 Insertion/operative site no bleeding no hematoma. 11:24:44 Post-op/insertion site Right Femoral artery dressed using a 4 x 4 and Tegaderm. 11:24:48 Post right femoral artery:stable 11:24:51 Post Procedure Pulses reassessed and unchanged 11:24:54 Post procedure rhythm: unchanged. 11:24:58 Estimated blood loss: 10 ml 11:25:17 Post procedure instruction explained to patient.Patient verbalizes understanding. 11:25:31 Procedure type changed to Cath procedure, Diagnostic procedure, LHC, LH C w/Coronaries, PCI procedure, Coronary Stent, Miscellaneous Procedures, Moderate Sedation up to 15 minutes 11:25:37 Procedure and supply charges have been captured, reviewed, submitted an d are correct. 11:27:06 Procedure Complication : No complications 11:27:09 Vital chart was stopped 11:27:10 See physician's report for complete and final results. 11:27:34 Patient transfered to [facility] with Bed. 11:27:37 Procedure ended. 11:27:37 Full Disclosure recording stopped 11:27:41 End room use (Document Last) Intervention Summary Intervention Notes Time ActionType Lesion and Equipment Used Action# Pressure Duration Attributes 11:22:50 Place stent Mid RCA COURTNEY RX 4.0 x 1 15 00:15 12 stent ([id number]) Device Usage Item Name Manufacture Quantity Catalog Number Hospital Part Current M inimal Lot# / Charge Number Stock Stock Serial# Code ACIST Syringe Acist 1 54033 468355 [id number] 257354 2 0 (21282) Medical Systems Inc Medline Cath Cardinal 1 [id number] 432638 59469 834306 5 Pack Health ([id number]) Bag Decanter Microtek 1 418521 74498 563837 5 () Medical Inc. SHEATH 6FR Terumo 1 [id number] 115427 948817 615450 4 0 Slender ([id number]) DIAGNOSTIC St Naveed 1 414990 632038 163791 097624 3 0 WIRE .035 260cm J wire (619556) ACIST Hand Acist 1 49492 817939 808413 641167 5 Control Medical (67731) Systems Inc ACIST Manifold Acist 1 26929 834502 267731 475492 5 (15609) Medical Systems Inc Tegaderm 4 x 4 3M 1 1626W 200054 049395 374786 5 (1626W) MBrace Wrist Advanced 1 140-0250-00 311986 95263 818210 5 Support Vascular ([id number]) Dynamics STOPCOCK 3-Way Cook Medical 1 K79507 200827 0015 440729 5 Large Bore (B67888) SHEATH 5FR Terumo 1 IKW183 960013 890284 189170 4 0 Oneida (JQS185) DIAGNOSTIC Cardinal 1 RQ0002 818300 77611 313846 3 0 Multipack 5Fr Health catheter set (LH8541) MULTIPACK Cardinal 1 025047 5 Pigtail 5 Fr Health catheter MULTIPACK JL Cardinal 1 446955 5 4.0 5Fr Health catheter MULTIPACK 3DRC Cardinal 1 304972 5 5Fr catheter Health INFLATOR Merit Merit 1 OH6113 024104 056051 062515 1 5 Oravel (WK7611) SHEATH 6FR Terumo 1 OMD723 416754 083841 954044 4 0 Oneida (BBB636) CHOICE PT [place] 1 [id number] 726919 723187 606474 5 Extra Support Scientific 182cm wire ([id number]) COURTNEY RX 4.0 x Medtronic 1 [id number] 626179 8740719 988776 5 [id number] 12 stent ([id number]) EXOSEAL 6Fr Cardinal 1 EX600 011973 746789 447282 1 0 (EX600) Health Signature Audit [place] Stage Time Signature Unsigned Intra-Procedure 07/23/2017 Juana Ly 11:29:19 AM RT(R) Signatures Monitor : Juana Ly Signature : RT Date : Time : [facility] [address] [place] [address]
--- NOTE | ~2017-07-20 | OP ---
PATIENT NAME: SUNITHA DELGADO MEDICAL RECORD: [id number] :54 LOCATION:D.M2 D.2116 ADMISSION DATE:07/20/17 SURGEON: SHAWN BAUER MD DATE OF OPERATION: 07/23/2017 PROCEDURES: 1. PTCA stent to RCA. 2. Left heart catheterization. 3. Selective coronary angiography. 4. Left ventriculogram. INDICATION: Angina and coronary artery disease. PROCEDURE IN DETAIL: After informed consent was obtained and after a detailed explanation of the risks, benefits as well as alternative therapies, the patient elected to proceed with angiogram and angioplasty. The right femoral area was prepped and draped in normal sterile fashion. The right femoral artery was cannulated via modified Seldinger technique with placement of 6-Ghanaian sheath. All catheters exchanged through this sheath. FINDINGS: Left ventriculogram was performed in standard 30-degree ROSALES view, reveals good cardiac wall motion throughout all segments. Overall ejection fraction estimated at 60%. SELECTIVE CORONARY ANGIOGRAPHY: 1. Left main showed no significant angiographic disease. 2. Left anterior descending has previously placed stents, these are widely patent with no significant restenosis. No disease elsewise throughout the LAD or its branches. 3. The left circumflex shows moderate irregularities, but no flow-limiting stenosis. 4. The right coronary artery has previously placed stents. There is 70% in-stent restenosis proximally. PTCA STENT OF THE RIGHT CORONARY ARTERY: The stent used was 4.0 x 12 mm Blaine. Result was 0% residual stenosis. OVERALL IMPRESSION: Successful percutaneous transluminal coronary angioplasty stent of the right coronary artery going from 70% initial stenosis that was an in-stent restenosis to 0% residual. TRANSINT:[id number] Voice Confirmation ID: [id number] DOCUMENT ID: [id number] SHAWN BAUER MD at 1025 CC: [id number] DICTATION DATE: 07/23/17 1128 DIRECTOR OF DIGITAL TECHNOLOGY: 07/23/17 1139 DIS IN 07/23/[address] [address]
--- NOTE | ~2017-07-20 | EC ---
PATIENT:SUNITHA DELGADO DATE OF SERVICE: 07/20/17 SEX: M MEDICAL RECORD: [id number] DATE OF : 54 LOCATION:D. D.211 AGE OF PATIENT: 66 ADMISSION DATE: 07/20/17 REFERRING PHYSICIAN: INTERPRETING PHYSICIAN: SHAWN COOL MD ECHOCARDIOGRAM REPORT ECHO CHARGES 4 ECHO COMPLETE CLINICAL DIAGNOSIS: CAD/ASSESS EF/VALVES HX OF CAD/STENTS/HTN ECHOCARDIOGRAPHIC MEASUREMENTS (adult normal given) AC root (d.<3.7cm) 3.6 cm LV Septum d (<1.2 cm> 1.5 cm Valve Excursion 1.5 cm LV Septum (systole) 1.8 cm Left Atria (s.<4.0cm> 3.3 cm LVPW d(<1.2cm) 1.5 cm RV (d.<2.3cm) 4.1 cm LVPW (sytole) 2.2 cm LV diastole(<5.6CM) 4.1 cm MV E-F(>70mm/sec) cm LV systole 2.1 cm LVOT Diameter 1.9 cm MV exc.(>10mm) 1.2 cm Est.ejection fraction (50-75%) % Pericardial Effusion N DOPPLER: LVIT cm/sec A 101 cm/sec E 82.0 cm/sec LA cm/sec RVSP 32 mmHg LVOT 143 cm/sec AOP1/2T 391 m/s Asc. Ao 231 cm/sec RVOT 78 cm/sec RA cm/sec PA 114 cm/sec AV Gradient Peak 21.36mmHg AV Mean 10.68mmHg AV Area 1.7 cm MV Gradient Peak 6.45 mmHg MV Mean 2.87 mmHg MV Area cm COMMENTS: Wet Roaster: Sean DIALLO Huller Operator: Asher Cool TAPE# PACS DATE OF SERVICE: 07/21/2017 FINDINGS: 1. Left ventricular chamber size is within normal limits. Left ventricular systolic function is normal. Overall ejection fraction is estimated at 60%. 2. Left atrium is within normal limits at 3.3 cm. Right atrium and right ventricular chamber sizes are as well mildly dilated. 3. Valvular structures: Aortic valve demonstrates mild calcific aortic stenosis. Valve area calculates to 1.7 cm-squared. There is a gradient of 21 mm across the valve. The remaining valvular structures have normal structure ECHOCARDIOGRAM REPORT [id number] SUNITHA DELGADO and motion. 4. Doppler interrogation else leiva reveals mild mitral regurgitation and mild tricuspid regurgitation. No other valvular insufficiency or stenosis. Pulmonary systolic pressure is normal, estimated at 32 mmHg. 5. No evidence of pericardial effusion or left ventricular thrombus. TRANSINT:[id number] Voice Confirmation ID: [id number] DOCUMENT ID: [id number] SHAWN COOL MD at 1025 CC: ROHITH BORJA MD [id number] DICTATION DATE: 07/22/17 1120 [employer]AILER [employer]ARMACE[employer]ICALS: 07/22/17 1354 DIS IN 07/23/17 [facility] [address] [facility] [place] [address]
[2017-07-20 17:49] VITALS: Ht 167.6 cm; Wt 65.6 kg
[2017-07-20 18:21] LABS: BASOPHILS 0.3 % (0-2); EOSINOPHILS 3.4 % (0-7); HEMATOCRIT 42.1 % (42.0-54.0); HEMOGLOBIN 14.5 g/dL (13.5-17.5); IMMATURE GRANULOCYTES 0.1 % (0-5); LYMPHOCYTES 21.6 % (15-50); MCH 31.5 pg (26.0-34.0); MCHC 34.4 g/dL (31.0-37.0); MCV 91.5 fL (80.0-100.0); MEAN PLATELET VOLUME 9.5 fL (7.4-10.4); MONOCYTES 13.2 % (2-11); NEUTROPHILS 61.4 % (40-80); PLATELET COUNT 213 10x3/uL (130-400); RDW 15.9 % (11.5-14.5); WBC 7.6 10x3/uL (4.8-10.8)
[2017-07-20 18:38] LABS: CKMB 1.4 U/L (0.0-3.6); CREATINE KINASE 138 UL (21-232)
[2017-07-20 18:40] LABS: TROPONIN-I < 0.017 ng/mL (0.000-0.060)
[2017-07-20] MEDS ORDERED: LIPITOR10 MG PO (18:42)
[2017-07-20 18:54] LABS: ALBUMIN 3.6 g/dL (3.4-5.0); ALKALINE PHOSPHATASE 118 U/L (46-116); ALT (SGPT) 22 U/L (10-68); BILIRUBIN - TOTAL 0.34 mg/dL (0.2-1.3); CALC OSMOLALITY 265 mosm/kg (275-300); CALCIUM 9.7 mg/dL (8.5-10.1); CARBON DIOXIDE 27.7 mmol/L (21.0-32.0); CHLORIDE - SERUM 97 mmol/L (98-107); GLUCOSE 93 mg/dL (74-106); POTASSIUM - SERUM 4.3 mmol/L (3.5-5.1); PROTEIN - SERUM 6.9 g/dL (6.4-8.2); SODIUM 134 mmol/L (136-145); UREA NITROGEN 8 mg/dL (7-18); eGFR NON AFRICAN AMERICAN 80 mL/min (90-120)
[2017-07-20 21:30] VITALS: BP 119/65
[2017-07-20 22:58] LABS: CREATINE KINASE 128 UL (21-232)
[2017-07-20 22:59] LABS: TROPONIN-I < 0.017 ng/mL (0.000-0.060)
[2017-07-21 04:54] LABS: CKMB 0.9 U/L (0.0-3.6); CREATINE KINASE 112 UL (21-232)
[2017-07-21 05:02] LABS: TROPONIN-I < 0.017 ng/mL (0.000-0.060)
[2017-07-21 06:36] VITALS: BP 114/66
[2017-07-21 09:09] VITALS: BP 112/58
[2017-07-21 12:15] VITALS: BP 104/48
[2017-07-21 15:58] VITALS: BP 93/50
[2017-07-21 20:25] VITALS: BP 146/65
[2017-07-22 01:13] VITALS: BP 129/53
[2017-07-22 04:32] VITALS: BP 123/62
[2017-07-22 07:00] VITALS: BP 139/62
[2017-07-22 12:48] VITALS: BP 122/71
[2017-07-22 16:00] VITALS: BP 117/67
[2017-07-22 21:41] VITALS: BP 101/53
[2017-07-23 01:10] VITALS: BP 116/60
[2017-07-23 04:58] VITALS: BP 125/56
[2017-07-23 07:45] VITALS: BP 136/64
[2017-07-23] MEDS ORDERED: PLAVIX75 MG PO (13:59)
== END 2017-07-23 16:10 | disposition home or self-care (01) ==
LOC: D.M2 16:20 → OBSVTIME 16:20 → D.M2 16:20
PROVIDERS: Family Medicine
DX: I25.110 Atherosclerotic heart disease of native coronary artery with unstable angina pectoris (principal); Z95.5 Presence of coronary angioplasty implant and graft; G40.909 Epilepsy, unspecified, not intractable, without status epilepticus; I10 Essential (primary) hypertension; E78.5 Hyperlipidemia, unspecified; K21.9 Gastro-esophageal reflux disease without esophagitis; E11.9 Type 2 diabetes mellitus without complications; F31.9 Bipolar disorder, unspecified
CPT/HCPCS: 93458; C9600

== ENCOUNTER 2017-12-29 15:21 | Emergency (ER) | payer MEDICARE, MEDICAID ==
[~2017-12-29] VITALS: Ht 167.6 cm; Wt 65.9 kg
[~2017-12-29 15:21] MED LIST changes: +LIPITOR10 MG PO
[2017-12-29 15:29] VITALS: Ht 167.6 cm; Wt 65.9 kg
[2017-12-29 16:06] LABS: BASOPHILS 0.4 % (0-2); EOSINOPHILS 1.3 % (0-7); HEMOGLOBIN 14.6 g/dL (13.5-17.5); IMMATURE GRANULOCYTES 0.1 % (0-5); LYMPHOCYTES 17.2 % (15-50); MCHC 35.6 g/dL (31.0-37.0); MCV 92.6 fL (80.0-100.0); PLATELET COUNT 215 10x3/uL (130-400); RBC 4.43 10x6/uL (4.20-6.10); RDW 15.2 % (11.5-14.5); WBC 7.4 10x3/uL (4.8-10.8)
[2017-12-29 16:07] LABS: APPEARANCE CLEAR (CLEAR); BILIRUBIN NEGATIVE (NEGATIVE); COLOR YELLOW (YELLOW); GLUCOSE NEGATIVE (NEGATIVE); KETONE NEGATIVE (NEGATIVE); NITRITE NEGATIVE (NEGATIVE); PROTEIN NEGATIVE (NEGATIVE); SPECIFIC GRAVITY 1.005 (1.005-1.020); UDS - AMPHET NEGATIVE QUAL (NEGATIVE); UDS - BARB NEGATIVE QUAL (NEGATIVE); UDS - BENZO NEGATIVE QUAL (NEGATIVE); UDS - COCAINE NEGATIVE QUAL (NEGATIVE); UDS - OPIATE NEGATIVE QUAL (NEGATIVE); UDS - PCP NEGATIVE QUAL (NEGATIVE); UDS - THC NEGATIVE QUAL (NEGATIVE); UROBILINOGEN NORMAL (NORMAL)
[2017-12-29 16:10] LABS: BACTERIA FEW /hpf (NONE SEEN); RED CELLS - URINE 0-5 /hpf (0-5)
[2017-12-29 16:24] LABS: ALBUMIN 3.8 g/dL (3.4-5.0); ALKALINE PHOSPHATASE 117 U/L (46-116); ALT (SGPT) 26 U/L (10-68); BILIRUBIN - TOTAL 0.32 mg/dL (0.2-1.3); CALC OSMOLALITY 265 mosm/kg (275-300); CALCIUM 9.2 mg/dL (8.5-10.1); CARBON DIOXIDE 24.3 mmol/L (21.0-32.0); CHLORIDE - SERUM 99 mmol/L (98-107); CREATININE - SERUM 0.9 mg/dL (0.6-1.3); GLUCOSE 109 mg/dL (74-106); POTASSIUM - SERUM 3.6 mmol/L (3.5-5.1); PROTEIN - SERUM 7.2 g/dL (6.4-8.2); SODIUM 134 mmol/L (136-145); UREA NITROGEN 5 mg/dL (7-18); eGFR NON AFRICAN AMERICAN 90 mL/min (90-120)
[2017-12-29] MEDS ORDERED: LEXAPRO20 MG PO (17:08)
[2017-12-29 17:28] VITALS: BP 158/79
== END 2017-12-29 17:29 | disposition home or self-care (01) ==
LOC: D.ER 15:21
PROVIDERS: Emergency Medicine
DX: F32.9 Major depressive disorder, single episode, unspecified (principal); E11.9 Type 2 diabetes mellitus without complications; I10 Essential (primary) hypertension; Z86.59 Personal history of other mental and behavioral disorders; Z86.79 Personal history of other diseases of the circulatory system; F17.200 Nicotine dependence, unspecified, uncomplicated

== ENCOUNTER 2018-01-16 19:14 | Observation (INO) | payer MEDICARE, MEDICAID ==
[~2018-01-16] VITALS: Ht 167.6 cm; Wt 64.1 kg
--- NOTE | ~2018-01-16 | HP ---
PATIENT: SUNITHA DELGADO MEDICAL RECORD: [id number] ACCOUNT: [id number] LOCATION:D.MS [id number] : 54 ADMISSION DATE: 01/16/18 HISTORY AND PHYSICAL EXAMINATION DATE OF ADMISSION: 01/16/2018 CHIEF COMPLAINT: Numbness, tingling, weakness on the right side. HISTORY: This is a 67-year-old white male with multiple medical problems, who woke up yesterday and felt right-sided weakness. He felt like his right leg was swollen. He had some pain and had difficulty walking. He had numbness and tingling there. Later, he also said his right arm and whole right side were numb and tingly. He came to the ER. His D-dimer was mildly elevated at 0.58. Magnesium was little low at 1.6. Cardiac enzymes were negative. Rest of the blood work was pretty unremarkable. He was admitted for further evaluation. PAST MEDICAL AND SURGICAL HISTORY: He has coronary artery disease with several stents, hyperlipidemia, well-controlled diabetes, hypertension, chronic back pain, migraine headaches, seizure disorder, schizoaffective disorder/bipolar. PAST SURGICAL HISTORY: Cholecystectomy; tonsillectomy; and cardiac stents, followed by Dr. Cool. DRUG ALLERGIES: None known. HOME MEDICATIONS: [place] 10/325 one pill 4 times a day, divalproex ER 500 mg t.i.d., Plavix 75 mg a day, Protonix 40 mg a day, metformin 500 mg twice a day, Elavil 25 mg a day, atenolol 50 mg a day, tizanidine 4 mg q.i.d., atorvastatin 10 mg a day, Singulair 10 mg once a day, Lexapro 20 mg a day, gabapentin 600 mg twice a day, Zyprexa 15 mg twice a day, Keppra 1500 mg twice a day, Topamax 25 mg twice a day, aspirin 81 mg once a day, Maxalt 10 mg p.r.n. migraines. HABITS: He continues to smoke. No alcohol or drugs. SOCIAL HISTORY: He is , on disability. FAMILY HISTORY: Father is . He had coronary artery disease and hypertension. Mother is . She had coronary artery disease, hypertension, and diabetes. REVIEW OF SYSTEMS: GENERAL: He has had 20+ pound weight loss over the last several months, which I have been working up in the office and really come up with nothing so far. HEENT: He has some sinus allergy troubles. RESPIRATORY: He has long time history of smoking and has COPD. CARDIAC: He has coronary disease with multiple stents. GASTROINTESTINAL: He has reflux. GENITOURINARY: No significant problems there. MUSCULOSKELETAL: Chronic neck and back pain. NEUROLOGIC: Migraine headaches and seizure disorder. PSYCHIATRIC: He has schizoaffective/bipolar disorder, on meds. PHYSICAL EXAMINATION: VITAL SIGNS: Temperature 97.9, pulse 90, respirations 20, blood pressure HISTORY AND PHYSICAL [id number] SUNITHA DELGADO 148/73. GENERAL: He does not appear in distress at this time. SKIN: Warm and dry. HEENT: Grossly within normal limits. NECK: Supple. No JVD or bruit. HEART: Regular rate and rhythm without murmur. LUNGS: Clear. ABDOMEN: Soft, flat, and nontender. EXTREMITIES: He has some mild generalized swelling in the right lower extremity and generalized tenderness to palpation. Left lower extremity is normal. NEUROLOGIC: He is able to use his right arm and hand without trouble. Little weakness in the right leg compared with left. LABORATORY DATA: CBC; normal white count. No anemia. Basic metabolic panel is essentially normal. Liver functions are all normal. INR is 0.97. D-dimer barely elevated at 0.58. Magnesium is low at 1.6. Ammonia level is 12. Troponin less than 0.017. DIAGNOSTIC DATA: CT of the head showed no acute process. Venous Doppler ultrasound showed no DVT. There is a 3-cm right inguinal lymph node. MRI of the brain showed nothing acute. There were probably tiny chronic infarcts in left frontal and right posterior temporal areas. ASSESSMENT: 1. Right leg weakness and swelling. 2. Right inguinal lymphadenopathy. 3. Unexplained weight loss for months. PLAN: He has had his MRI of the brain normal today. We will get CT of abdomen and pelvis to look for further lymphadenopathy. Other tests and procedures as warranted. TRANSINT:[id number] Voice Confirmation ID: [id number] DOCUMENT ID: [id number] ROHITH BORJA MD at 0909 CC: [id number] DICTATION DATE: 01/17/18 1439 PIGMENT PUSHER: 01/17/18 1532 ADM IN [place] [address] [place] [address]
[~2018-01-16 19:14] MED LIST changes: +LEXAPRO20 MG PO
[2018-01-16 20:10] LABS: BASOPHILS 0.4 % (0-2); EOSINOPHILS 2.1 % (0-7); HEMATOCRIT 38.9 % (42.0-54.0); HEMOGLOBIN 13.3 g/dL (13.5-17.5); IMMATURE GRANULOCYTES 0.1 % (0-5); MCH 32.9 pg (26.0-34.0); MCHC 34.2 g/dL (31.0-37.0); MCV 96.3 fL (80.0-100.0); MEAN PLATELET VOLUME 9.8 fL (7.4-10.4); MONOCYTES 8.6 % (2-11); NEUTROPHILS 70.8 % (40-80); PLATELET COUNT 234 10x3/uL (130-400); RBC 4.04 10x6/uL (4.20-6.10); RDW 15.6 % (11.5-14.5); WBC 8.9 10x3/uL (4.8-10.8)
[2018-01-16 20:30] LABS: ALBUMIN 3.2 g/dL (3.4-5.0); ALKALINE PHOSPHATASE 149 U/L (46-116); ALT (SGPT) 21 U/L (10-68); CALC OSMOLALITY 262 mosm/kg (275-300); CALCIUM 8.6 mg/dL (8.5-10.1); CARBON DIOXIDE 31.6 mmol/L (21.0-32.0); CHLORIDE - SERUM 98 mmol/L (98-107); CREATININE - SERUM 0.9 mg/dL (0.6-1.3); GLUCOSE 114 mg/dL (74-106); POTASSIUM - SERUM 3.8 mmol/L (3.5-5.1); PROTEIN - SERUM 6.5 g/dL (6.4-8.2); SODIUM 132 mmol/L (136-145); UREA NITROGEN 5 mg/dL (7-18); eGFR NON AFRICAN AMERICAN 90 mL/min (90-120)
[2018-01-16 20:33] LABS: APTT 31.5 SECONDS (22.8-39.4); INR 0.97 (0.85-1.17); PROTIME 12.5 SECONDS (11.6-15.0)
[2018-01-16 20:35] LABS: D-DIMER-QUANTITATIVE 0.58 ug/mLFEU (0.20-0.54)
[2018-01-16 20:40] LABS: CKMB 1.5 U/L (0.0-3.6); CREATINE KINASE 93 UL (21-232); MAGNESIUM - SERUM 1.6 mg/dL (1.8-2.4); TROPONIN-I < 0.017 ng/mL (0.000-0.060)
[2018-01-17 01:30] VITALS: BP 163/64; Ht 167.6 cm; Wt 64.1 kg
[2018-01-17 03:42] VITALS: BP 154/73
[2018-01-17 08:43] VITALS: BP 161/80
[2018-01-17 11:48] VITALS: BP 148/73
[2018-01-17 19:40] VITALS: BP 153/71
[2018-01-17 23:35] VITALS: BP 108/48
[2018-01-18 04:12] VITALS: BP 122/62
[2018-01-18 09:36] VITALS: BP 131/66
[2018-01-18 15:13] VITALS: BP 124/58
== END 2018-01-18 15:02 | disposition home or self-care (01) ==
LOC: D.ER 19:14 → OBSVTIME 21:47 → D.EDHOLD 21:47 → D.MS 21:47
PROVIDERS: Family Medicine
DX: R59.1 Generalized enlarged lymph nodes (principal); R53.1 Weakness; I25.10 Atherosclerotic heart disease of native coronary artery without angina pectoris; Z95.5 Presence of coronary angioplasty implant and graft; E78.5 Hyperlipidemia, unspecified; E11.9 Type 2 diabetes mellitus without complications; I10 Essential (primary) hypertension; G40.909 Epilepsy, unspecified, not intractable, without status epilepticus; F25.0 Schizoaffective disorder, bipolar type; R63.4 Abnormal weight loss

== ENCOUNTER → 2018-04-16 14:14 | Outpatient (CLI) | payer MEDICARE, MEDICAID ==
[2018-01-17 01:30] VITALS: BMI 22.8
== END | disposition home or self-care (01) ==
LOC: D.MRI 04-09 11:00
DX: M25.562 Pain in left knee (principal)

== ENCOUNTER 2018-05-28 06:18 | Day surgery (SDC) | payer MEDICARE, MEDICAID ==
[~2018-05-28] VITALS: Ht 167.6 cm; Wt 70.3 kg
--- NOTE | ~2018-05-28 | OP ---
PATIENT NAME: SUNITHA MUNIZ MEDICAL RECORD: [id number] :54 LOCATION:[facility] ADMISSION DATE: SURGEON: JOS REDDY DO DATE OF OPERATION: 05/28/2018 PROCEDURE PERFORMED: Left knee arthroscopy with partial medial and partial lateral meniscectomies. PREOPERATIVE DIAGNOSIS: Left knee medial and lateral meniscal tears. POSTOPERATIVE DIAGNOSIS: Left knee medial and lateral meniscal tears. INDICATIONS: Mr. Muniz is a 67-year-old male, who presented to my office with left knee pain. He said he had more symptoms of catching and locking and popping. I informed him that it sound like more meniscal symptoms even though he does have some osteoarthritis, especially in the medial compartment on x-ray. MRI was done, which indeed showed a tear of the medial and lateral menisci and osteoarthritis in all the compartments, more severe in the patellofemoral and medial compartment. I informed him of this and told him that we could get the meniscal symptoms to go away, but due to his health status, I would not suggest doing a total joint on him. With popping, catching, and locking, we could deal with by doing partial meniscectomies. He was okay with that and understood the risks and benefits including infection, bleeding, damage to nerve or vessels, need for further surgery, and that he may have continued pain due to the fact he had underlying arthritis. He signed the consent. SURGEON: Jos Reddy DO DESCRIPTION OF PROCEDURE: The patient was taken to the operative suite, laid in supine position. Left lower extremity was prepped and draped in sterile fashion. A time-out was performed and everyone was the correct side, site, patient, and procedure. The patient received 2 grams of Ancef preoperatively. Once time-out was performed and the patient had been prepped and draped, the knee was flexed down. The lateral portal was established with 11-blade scalpel and the trocar was entered into the knee. The water was turned on and the scope was then used to inspect the knee. The suprapatellar pouch did not show any loose bodies, but did show chondromalacia of the lateral facet of the patella, grade IV and the lateral gutter was inspected. No loose body is seen there. Medial gutter was inspected and no loose bodies there. The knee was then flexed down from extension to flexion and the medial joint line was entered. Once the medial joint line was entered, the medial portal was established with an 18-gauge spinal needle and 11-blade scalpel. Trocar was then used to widen that portal and a probe was put in the knee. 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 This was trimmed out with a straight biter and then a shaver and then a partial abrasion chondroplasty was done of the medial femoral condyle removing all the loose cartilage pieces. The ACL was then probed with probe and seen to be in good position. Knee was then taken forward. A large meniscal tear of the lateral meniscus was seen in the posterior horn from posterior horn to the middle third of the lateral meniscus. This was trimmed back with a biter and a shaver. Once it was trimmed back to a stable position and a shaver was used, the scope was entered into the suprapatellar pouch looking for loose bodies, none were seen there and the knee was flexed down to ensure that good tracking was seen of the patella and the trochlear groove and it was. The water was then turned off and suction turned OPERATIVE REPORT [id number] SUNITHA MUNIZ on. The water was removed from the knee and the scope was as well. The portal sites were closed with 4-0 Monocryl in an inverted interrupted fashion and Steri-Strips were placed on them and then 4 x 4s, ABD, and Webril were placed on the knee. A 6-inch Antony was wrapped around the knee. JESSICA hose stocking was placed up to the knee. The patient was awakened and taken to recovery in stable condition. Blood loss was minimal. Complications none. TRANSINT:[id number] Voice Confirmation ID: [id number] DOCUMENT ID: [id number] JOS REDDY DO at 1358 CC: [id number] DICTATION DATE: 05/28/18 1043 HOSPITALITY AMBASSADOR: 05/28/18 1114 [facility] [address] [place] [address]
[2018-05-28 07:11] LABS: HEMATOCRIT 43.2 % (42.0-54.0); HEMOGLOBIN 14.8 g/dL (13.5-17.5); MCH 32.1 pg (26.0-34.0); MCHC 34.3 g/dL (31.0-37.0); MCV 93.7 fL (80.0-100.0); MEAN PLATELET VOLUME 9.1 fL (7.4-10.4); RBC 4.61 10x6/uL (4.20-6.10); RDW 15.6 % (11.5-14.5); WBC 7.4 10x3/uL (4.8-10.8)
[2018-05-28] MEDS ORDERED: ALBUTEROL SULF8.5 GM INH (08:23)
[2018-05-28] MEDS ORDERED: ANORO ELLIPTA1 EACH INH (08:23)
[2018-05-28] MEDS ORDERED: MYSOLINE 50 MG50 MG PO (08:23)
[2018-05-28 08:36] VITALS: BP 148/67; Ht 167.6 cm; Wt 70.3 kg
[2018-05-28] MEDS ORDERED: VISTARIL50 MG PO (10:48)
[2018-05-28] MEDS ORDERED: OXYCODONE-APAP1 TAB PO (10:48)
== END 2018-05-28 14:50 | disposition home or self-care (01) ==
LOC: D.OPS 06:18 → D.PAN 08:45 → D.OPS 14:50 → D.PAN 16:15 → D.OPS 16:15
PROVIDERS: Anesthesiology
DX: S83.242A Other tear of medial meniscus, current injury, left knee, initial encounter (principal); S83.282A Other tear of lateral meniscus, current injury, left knee, initial encounter; M22.42 Chondromalacia patellae, left knee; Z01.812 Encounter for preprocedural laboratory examination

== ENCOUNTER 2018-09-20 17:39 | Emergency (ER) | payer MEDICARE, MEDICAID ==
[~2018-09-20] VITALS: Ht 167.6 cm; Wt 71.8 kg
[~2018-09-20 17:39] MED LIST changes: +ALBUTEROL SULF8.5 GM INH; +ANORO ELLIPTA1 EACH INH; +OXYCODONE-APAP1 TAB PO; +VISTARIL50 MG PO
[2018-09-20 18:22] VITALS: Ht 167.6 cm; Wt 71.8 kg
[2018-09-20 21:00] VITALS: BP 148/73
== END 2018-09-20 21:00 | disposition home or self-care (01) ==
LOC: D.ER 17:39
DX: S39.012A Strain of muscle, fascia and tendon of lower back, initial encounter (principal); X50.9XXA Other and unspecified overexertion or strenuous movements or postures, initial encounter; Y93.89 Activity, other specified; Y92.019 Unspecified place in single-family (private) house as the place of occurrence of the external cause; M48.36 Traumatic spondylopathy, lumbar region

== ENCOUNTER 2018-10-05 12:27 | Emergency (ER) | payer MEDICARE, MEDICAID ==
[~2018-10-05] VITALS: Ht 167.6 cm; Wt 71.8 kg
[2018-10-05 12:45] VITALS: Ht 167.6 cm; Wt 71.8 kg
[2018-10-05] MEDS ORDERED: MEDROL DOSE PACK4 MG PO (14:33)
[2018-10-05 14:42] VITALS: BP 148/72
== END 2018-10-05 14:43 | disposition home or self-care (01) ==
LOC: D.ER 12:27
DX: L30.9 Dermatitis, unspecified (principal)

== ENCOUNTER 2018-12-03 18:45 | Inpatient (IN) | payer MEDICARE, MEDICAID ==
[~2018-12-03 18:45] MED LIST changes: +MEDROL DOSE PACK4 MG PO
--- NOTE | 2018-12-03 21:15 | NUR ---
RECEIVED IN DAYROOM. SITTING IN CHAIR WITH PEERS AT HIS SIDE. NO SIGNS OF AGGRESSION. CALM AND COOPERATIVE WITH CARE AND ASSESSMENT. REDIRECT AND REORIENT NEEDED. RESTING QUIETLY IN BED AT THIS TIME. CONTINUE PLAN OF CARE
[2018-12-04 06:09] VITALS: BP 130/59; BMI 26.5
[2018-12-04 07:00] LABS: BASOPHILS 0.2 % (0-2); EOSINOPHILS 3.1 % (0-7); HEMATOCRIT 42.5 % (42.0-54.0); HEMOGLOBIN 14.6 g/dL (13.5-17.5); IMMATURE GRANULOCYTES 0.4 % (0-5); LYMPHOCYTES 21.7 % (15-50); MCH 30.8 pg (26.0-34.0); MCHC 34.4 g/dL (31.0-37.0); MCV 89.7 fL (80.0-100.0); MEAN PLATELET VOLUME 8.9 fL (7.4-10.4); MONOCYTES 13.8 % (2-11); NEUTROPHILS 60.8 % (40-80); PLATELET COUNT 212 10x3/uL (130-400); RBC 4.74 10x6/uL (4.20-6.10); RDW 17.4 % (11.5-14.5); WBC 4.8 10x3/uL (4.8-10.8)
[2018-12-04 07:42] LABS: ALBUMIN 3.4 g/dL (3.4-5.0); ALKALINE PHOSPHATASE 156 U/L (46-116); ALT (SGPT) 21 U/L (10-68); BILIRUBIN - TOTAL 0.28 mg/dL (0.2-1.3); CALC OSMOLALITY 270 mosm/kg (275-300); CALCIUM 8.9 mg/dL (8.5-10.1); CARBON DIOXIDE 29.9 mmol/L (21.0-32.0); CHLORIDE - SERUM 99 mmol/L (98-107); CHOLESTEROL, TOTAL 94 mg/dL (0-200); CREATININE - SERUM 0.9 mg/dL (0.6-1.3); GLUCOSE 121 mg/dL (74-106); HDL CHOLESTEROL 47 mg/dL (32-96); LDL CHOLESTEROL 36 mg/dL (0-100); LDL-HDL RATIO 0.8 ratio (1.5-3.5); POTASSIUM - SERUM 4.5 mmol/L (3.5-5.1); SODIUM 135 mmol/L (136-145); TRIGLYCERIDE 56 mg/dL (30-200); UREA NITROGEN 12 mg/dL (7-18); eGFR NON AFRICAN AMERICAN 90 mL/min (90-120)
[2018-12-04 08:31] VITALS: BP 149/66
[2018-12-04 09:30] VITALS: BMI 26.4
--- NOTE | 2018-12-04 10:00 | NUR ---
RECEIVED PATIENT IN DINING ROOM FOR B'FAST, APPETITE FAIR. QUIET, CALM, NO BEHAVIORAL ISSUES NOTED AT THIS TIME. CONT POC DIRECTED.
--- NOTE | 2018-12-04 10:30 | NUR ---
PATIENT CALLED TO CHECK ON PATIENT CORRECT PASSWORD. WANTED TO SPEAK WITH MANUAL LATHE MACHINIST AND GIVE HER PHONE NUMBER. TOLD THE CALL TIME FOR THE DAY.
[2018-12-04 12:06] VITALS: BMI 26.3
--- NOTE | 2018-12-04 16:23 | NUR ---
LATE ENTRY---PT WAS ADMITTED TO [facility] FROM DR. BORJA'S OFFICE. PT HAS A HX OF BIPOLAR AND HAD MADE SUICIDAL STATEMENTS ABOUT TAKING PILLS. PT DID NOT WANT TO COMPLETE SUICIDE ASSESSMENT AFTER COMPLETING ADMISSION ASSESSMENT. DR. VINES NOTIFIED OF PT'S ADMIT AND STATED 15 MIN OBSERVATION IS ENOUGH DUE TO PT BEING IN A SAFE ENVIRONMENT. WILL CONTINUE TO MONITOR AND COMPLETE ENVIRONMENTAL ROOM CHECK. SAFETY PLAN AND RESOURCES GIVEN.
[2018-12-04] MEDS ORDERED: CLOTRIMAZOLE-BE30 ML TOPICAL (17:43)
[2018-12-04] MEDS ORDERED: DEPAKOTE ER500 MG PO (17:47)
--- NOTE | 2018-12-04 19:44 | NUR ---
RECEIVED IN PATIENT ROOM. GETTING READY FOR BED. CALM AND COOPERATIVE WITH CARE AND ASSESSMENT. DENIES THOUGHTS OF SELF HARM AT THIS TIME. REDIRECT AND REORIENT NEEDED. RESTING IN BED WITH EYES CLOSED AT THIS TIME. CONTINUE PLAN OF CARE.
[2018-12-05 07:22] LABS: RAPID PLASMA REAGIN Non Reactive (Non Reactive); VITAMIN D 25 HYDROXY 30.8 ng/mL (30.0-100.0)
[2018-12-05 11:14] LABS: FOLATE (FOLIC ACID) - SERUM 12.5 ng/mL (>3.0)
[2018-12-05 12:39] VITALS: BP 153/63
[2018-12-05 13:41] LABS: AMORPHOUS SEDIMENT <1+ /lpf (NONE SEEN); APPEARANCE CLEAR (CLEAR); BACTERIA FEW /hpf (NONE SEEN); BILIRUBIN NEGATIVE (NEGATIVE); COLOR YELLOW (YELLOW); GLUCOSE NEGATIVE (NEGATIVE); KETONE NEGATIVE (NEGATIVE); MUCUS <1+ /lpf (NONE SEEN); NITRITE NEGATIVE (NEGATIVE); PROTEIN NEGATIVE (NEGATIVE); SPECIFIC GRAVITY 1.005 (1.005-1.020); UROBILINOGEN NORMAL (NORMAL)
[2018-12-05 13:42] LABS: EPITHELIAL CELLS RARE /hpf (0-5); WHITE CELLS - URINE RARE /hpf (0-5)
--- NOTE | 2018-12-05 13:47 | PSY ---
PATIENT NAME:SUNITHA DELGADO MEDICAL RECORD: [id number] : 54 LOCATION:[facility] ADMISSION DATE: 12/03/18 ACCOUNT: [id number] PSYCHIATRIC EVALUATION DATE OF EVALUATION: 12/04/18 PSYCHIATRIC EVALUATION IDENTIFYING DATA: The patient is 68 years old and he is admitted to the hospital on a voluntary basis. CHIEF COMPLAINT: Depression. HISTORY OF PRESENT ILLNESS: The patient reports that he is having suicidal thoughts and that he is hearing voices telling him to kill himself. He says, in the past several weeks, he has taken medications from his medicine cabinet and taken the whole bottle and gone to sleep, but woken up. He does not remember exactly what these were. He endorses numerous neurovegetative depressive symptoms. He reports numerous psychosocial stressors and denies that he is drinking or using drugs. He has no thoughts of harming others. He does have auditory hallucinations telling him to kill himself. PAST MEDICAL HISTORY: Significant for coronary artery disease. He has had several stents placed. He says he has a valve leaking in his heart, but I do not know if it is mitral and tricuspid and he does not remember. He says the behavior analyst told him it was minor, but at some point it would have to be addressed. He also has a history of diabetes. He has a history of hyperlipidemia, high blood pressure, and chronic low back pain. PAST PSYCHIATRIC HISTORY: Significant for multiple overdoses. He has attempted to kill himself numerous times and says he has been hospitalized at least a dozen times over the past 30 years. He names several hospitals, a number of which are not familiar to me and are apparently in another state. He did have a long history of alcoholism, but he quit drinking completely 21 years ago. FAMILY HISTORY: Significant for depression and alcohol abuse. ALLERGIES: No known drug allergies. CURRENT MEDICATIONS: Please see the admissions MAR. SOCIAL HISTORY: The patient has been to the same woman for 25 years. They have no children together. He was to another woman in the past and he has a total of 4 children from previous marriage and previous relationships. He did serve in the [employer], but it was at the end of the [place] War and did not see combat. 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 MENTAL STATUS EXAMINATION: The patient is awake; alert; and oriented to person, place, time, and situation. His mood is depressed. His affect is constricted. Thought processes are circumstantial. Memory, concentration, and abstraction abilities are moderately impaired. He denies that he would actively seek to harm himself or others as well as any overt psychotic symptoms. ASSETS: Supportive family members. LIABILITIES: Limited insight. DIAGNOSTIC IMPRESSION: AXIS I: Major depression, severe, recurrent, with psychotic features. AXIS II: Deferred. AXIS III: Diabetes, hypertension, and coronary artery disease. AXIS IV: Moderate. AXIS V: Global assessment of functioning is 45. PLAN: At this time, the patient is admitted to the hospital for comprehensive medical, psychological, and social evaluation. He will be treated with both mood stabilizing and memory enhancing medications. His long-term prognosis is guarded. TRANSINT:[id number] Voice Confirmation ID: [id number] DOCUMENT ID: [id number] PIPER VINES MD at 1347 CC: [id number] DICTATION DATE: 12/04/18 170 MATERIALS ASSOCIATE: 12/04/18 194 ADM IN [facility] [address] [place] [id number]
--- NOTE | 2018-12-05 16:15 | NUR ---
Spoke to the patient's spouse and she says she is concerned with Isai's meds especially the zyprexa. She wants him to have med changes. Explained to her that we just received the urine today and usually the Dr.'s will change medications after the UA. The patient's spouse verbalized understanding.
[2018-12-05 23:17] VITALS: BP 156/69
--- NOTE | 2018-12-06 01:36 | NUR ---
B) patient is alert and oriented to person and place, calm and cooperative, I) Administered scheduled medications, monitored for needs, R) Mediation compliant, no S.I. this shift, P) Continue plan of care.
[2018-12-06 09:21] VITALS: BP 118/57
--- NOTE | 2018-12-06 14:15 | PN ---
PATIENT:SUNITHA DELGADO MEDICAL RECORD: [id number] LOCATION:[facility] ADMISSION DATE: 12/03/18 PROGRESS NOTE DATE OF SERVICE: 12/05/2018 SUBJECTIVE: The patient's case was discussed with staff. He has no new complaint. OBJECTIVE: The patient is in good behavioral control with poor insight about his condition. He tolerates his medicines well. ASSESSMENT: Major depression. PLAN: Current medicines have been reviewed. An excellent history was given by his . He denies that he wants to hurt himself today and that is encouraging. I am going to check a Depakote level today and see if it is close to being therapeutic. TRANSINT:[id number] Voice Confirmation ID: [id number] DOCUMENT ID: [id number] PIPER VINES MD at 1415 CC: [id number] DICTATION DATE: 12/05/18 1538 ANAESTHESIOLOGIST: 12/05/182049 ADM IN [place] [id number] [place] [address]
--- NOTE | 2018-12-06 18:34 | NUR ---
IS ORIENTED TO SELF AND PLACE.DENIES HEARING VOICES TODAY AND TAUGHTS OF HARMING SELF.COMPLIANT WITH STAFF AND MEDS.WILL CONTINUE WITH PLAN OF CARE,MONITOR FOR CHANGES AND SAFETY.
[2018-12-06 20:00] VITALS: BP 120/60
--- NOTE | 2018-12-06 23:06 | NUR ---
PATIENT IS COMPLIANT WITH MEDS, STAYING TO HIMSELF, DENIES S/I AT THIS TIME. WILL FOLLOW POC
[2018-12-07 08:08] VITALS: BP 139/66
[2018-12-07 09:54] VITALS: BP 139/66
[2018-12-07 09:55] VITALS: BP 139/66
--- NOTE | 2018-12-07 10:00 | NUR ---
RECEIVED PATIENT IN DINING ROOM FOR B'FAST, ALERT, CALM, COOPERATIVE. MEDS ADMIN PER ORDERS WITH COMPLET MED COMPLIANCE NOTED. COOPERATIVE WITH CARE AND STAFF REQUESTS. CONT POC INCLUDING MEDS AND GROUP THERAPY DIRECTED.
--- NOTE | 2018-12-07 10:36 | PN ---
PATIENT:SUNITHA DELGADO MEDICAL RECORD: [id number] LOCATION:[facility] ADMISSION DATE: 12/03/18 PROGRESS NOTE DATE OF SERVICE: 12/06/2018 SUBJECTIVE: The patient's case was discussed with staff. He has no new complaint. OBJECTIVE: The patient is in good behavioral control. He has poor insight about his condition. He is taking a fairly large dose of Zyprexa at bedtime. I plan to reduce that significantly. ASSESSMENT: No change in diagnoses. PLAN: Current medicines and therapies have been reviewed, both will be maintained. TRANSINT:[id number] Voice Confirmation ID: [id number] DOCUMENT ID: [id number] PIPER VINES MD at 1036 CC: [id number] DICTATION DATE: 12/06/18 1551 RENT AND MISCELLANEOUS REMITTANCE CLERK: 12/06/18 2231 ADM IN [place] [id number] [place] [id number]
--- NOTE | 2018-12-07 16:13 | NUR ---
The patients spouse would like to speak to Dr. Snyder, she wonders why medications have not been changed especially since he is supposed to be going home on Sunday. Explained to her that the has decreased some meds and increased some of the others. She said "Well, if he will call me and explain then maybe I can let him know some more information and I may understand." Did let her know we will relay the message to him. Also did let Brayan Ngo RN know.
[2018-12-07 20:00] VITALS: BP 169/58
--- NOTE | 2018-12-07 23:52 | NUR ---
PATIENT IS QUIET, WITHDRAWN, DENIES S/I. COMPLIANT WITH MEDS, WILL FOLLOW POC
[2018-12-08 07:00] VITALS: BP 125/48
--- NOTE | 2018-12-08 09:40 | PN ---
PATIENT:SUNITHA DELGADO MEDICAL RECORD: [id number] LOCATION:[facility] ADMISSION DATE: 12/03/18 PROGRESS NOTE DATE OF SERVICE: 12/07/2018 SUBJECTIVE: The patient's case was discussed with staff. He has no new complaint. OBJECTIVE: The patient is in good behavioral control with limited insight about his condition. He is tolerating his medicines well. ASSESSMENT: Major depression. PLAN: The patient has no thoughts of harming himself. He is tolerating medicines well. I am going to reduce the dose of his Zyprexa further. I think his long-term prognosis is fairly guarded. TRANSINT:[id number] Voice Confirmation ID: [id number] DOCUMENT ID: [id number] PIPER VINES MD at 0940 CC: [id number] DICTATION DATE: 12/07/18 1219 LOCUM TENENS PSYCHIATRIST: 12/07/18 1709 ADM IN [place] [id number] [place] [address]
[2018-12-08] MEDS ORDERED: ZYPREXA10 MG PO (10:12)
[2018-12-08] MEDS ORDERED: VITAMIN D5000 UNIT PO (10:13)
--- NOTE | 2018-12-08 14:13 | NUR ---
PT ISLERT AND ORIENTED TO PERSON AND PLACE. CALM AND COOPERATIVE WITH ASSESSMENT. NO AGGRESSSION NOTED. MED COMPLIANT. REDIRECT AND REORIENT NEEDED. FALL PRECAUTIONS IN PLACE. WILL CPOC.
[2018-12-08 20:08] VITALS: BP 138/73
--- NOTE | 2018-12-08 21:42 | NUR ---
RECEIVED IN DINING AREA. CALM AND COOPERATIVE WITH CARE AND ASSESSMENT. NO STATEMENTS OF SELF HARM VOICE. ENCOURAGE TO EXPRESS NEEDS. SITTING CALMLY AT THIS TIME. CONTINUE PLAN OF CARE
[2018-12-09 07:00] VITALS: BP 111/55
--- NOTE | 2018-12-09 11:25 | NUR ---
SW SPOKE WITH ABOUT DISCHARGE PLANS AND CONCERNS OVER MEDICATION REGIMEN. STATED SHE WAS SATISFIED WITH DISCHARGE PLANNING AT THIS TIME AND UNDERSTANDS MD WILL NOT MEDICATE FOR BEHAVIORS THAT AREN'T DEMONSTRATED ON THE UNIT. SW STATED PT HAS CONSISTENLY STATED HE IS NO LONGER SUICIDAL AND HAS BEEN LAUGHING AND SOCIALIZING WITH OTHER PT'S AND STAFF ON THE UNIT. SW ALSO REPORTED GIVING PT SAFETY PLAN AND HELPING HIM FILL IT OUT TO KEEP ON OUTPATIENT BASIS. PT STATED HE WAS GOING TO SET UP AN APPOINTMENT WITH HIS OUTPATIENT THERAPIST WHEN HE MOVED INTO HIS NEW HOUSE THIS NEXT WEEK. SW GAVE PT RESOURCES FOR SUCIDAL IDEATIONS INCLUDING [facility]. PT VERBALIZED GRATITUDE FOR TREATMENT AND STATED HE FEELS MUCH BETTER. SW STATED AFTER HE RECIEVES INDIVIDUAL THERAPY SHE HIGHLY RECOMMENDS COUPLES THERAPY TO ELIMINATE SOME OF THE STRESSORS IN THE HOME ENVIRONMENT. PT'S VERBALIZED UNDERSTANDING OF DISCUSSION.
--- NOTE | 2018-12-09 11:58 | NUR ---
DISCHARGE TEACHING GIVEN TO PATIENT AND FAMILY. PATIENT ALERT, ORIENTED, LOOKING FORWARD TO DISCHARGE. PRESCRIPTIONS CALLED TO [facility]. PERSONAL BELONGINGS RETURNED TO PATIENT. DISCHARGED FROM UNIT IN C/O FAMILY. PATIENT DENIES PAIN AND IS NO SIGN OF DISTRESS.
--- NOTE | 2018-12-09 14:35 | PN ---
PATIENT:SUNITHA DELGADO MEDICAL RECORD: [id number] LOCATION:[facility] ADMISSION DATE: 12/03/18 PROGRESS NOTE DATE OF SERVICE: 12/08/2018 SUBJECTIVE: The patient's case was discussed with staff. He has no new complaint. OBJECTIVE: The patient is in good behavioral control. He has no thoughts of harming himself or others. He is fully oriented. ASSESSMENT: Major depression. PLAN: The patient will be treated with current medicines, which have been reviewed. He will be discharged tomorrow assuming this level of improvement is continued. TRANSINT:[id number] Voice Confirmation ID: [id number] DOCUMENT ID: [id number] PIPER VINES MD at 1435 CC: [id number] DICTATION DATE: 12/08/18 1014 PATIENT MANAGER: 12/08/18 1405 DIS IN 12/09/18 [facility] [address] [place] [address]
--- NOTE | 2018-12-10 09:41 | PN ---
PATIENT:SUNITHA DELGADO MEDICAL RECORD: [id number] LOCATION:[facility] ADMISSION DATE: 12/03/18 PROGRESS NOTE DATE OF SERVICE: 12/09/2018 SUBJECTIVE: The patient's case was discussed with staff. He has no new complaint. OBJECTIVE: The patient is in good behavioral control. He has very limited insight about his condition. He has no evidence of acute or direct dangerousness. ASSESSMENT: Major depression. PLAN: The patient is going to be transitioned out of the hospital today. In fact, he may have already left by this afternoon, but his is going to come and get him and follow up will be with his primary care physician and his outpatient psychiatrist. TRANSINT:[id number] Voice Confirmation ID: [id number] DOCUMENT ID: [id number] PIPER VINES MD at 0941 CC: [id number] DICTATION DATE: 12/09/18 1445 LUMBER TAILER: 12/09/18 1455 DIS IN 12/09/18 [facility] [address] [place] [address]
--- NOTE | 2018-12-11 12:50 | DS ---
PATIENT:SUNITHA DELGADO :54 MEDICAL RECORD: [id number] DISCHARGE SUMMARY ADMISSION DATE: 12/03/18 DISCHARGE DATE: 12/09/18 IDENTIFYING DATA: The patient is 68 years old and he was admitted to the hospital on a voluntary basis because of depression. The patient reports he has been having suicidal thoughts and that he has been hearing voices telling him to kill himself. Says that in the past several weeks, he has taken medicines from the cabinet and taken a whole bottle of medicines to go to sleep but then woke up. He does not remember exactly what he had taken. He endorsed numerous neurovegetative depressive symptoms and endorsed numerous psychosocial stressors. He denies that he has been drinking alcohol or using drugs. He has no thoughts of harming others. He says that he is hearing voices telling him to kill himself. HOSPITAL COURSE: The patient was admitted to the hospital and fully evaluated from both a medical, psychological, and social standpoint. It turns out that the patient had been engaged in a great deal in some conflicts with his . His mood and hallucinations almost immediately disappeared. He clearly has evidence of a significant character pathology in the cluster B spectrum. The amount of antipsychotic medication he was taking I felt was not consistent with his condition and it was reduced. He had no suicidal thoughts or psychotic symptoms for several days and requested discharge. He was subsequently discharged and referred to outpatient mental health treatment. DISCHARGE DIAGNOSES: AXIS I: Major depression, severe, recurrent with psychotic features. AXIS II: Cluster B personality disorder. AXIS III: Diabetes, hypertension, and coronary artery disease. AXIS IV: Moderate. AXIS V: Global Assessment of Functioning is 50. PLAN: At the time of discharge, the patient was not acutely dangerous and had no psychotic symptoms present. It was clear that under stress he becomes disorganized. Ways of coping with stress were discussed. He was referred for outpatient counseling. Primary stress is related to he and his not getting along. He is at significant risk for self-harm based upon both his mood disorder and his primitive personality disorder. He has limited abilities to cope with stress. There was no point in ongoing psychiatric hospitalization and confinement. He was referred for outpatient therapy. He did not want to leave his or live elsewhere and apparently this is a 3-decade long history of conflict between the two of them. I think his prognosis is guarded and will be largely dependent upon outpatient counseling. He may of course return if he develops additional symptoms. TRANSINT:[id number] Voice Confirmation ID: [id number] DOCUMENT ID: [id number] DISCHARGE SUMMARY REPORT [id number] SUNITHA DELGADO PETER MD at 1250 CC: [id number] DICTATION DATE: 12/10/18 0952 BATTERBOARD SETTER: 12/10/18 2247 DIS IN 12/09/18 [place] [address] [place] [address]
== END 2018-12-09 12:04 | disposition home or self-care (01) | DRG 885 ==
LOC: D.PSYCH 18:45
PROVIDERS: ADMIT Psychiatry & Neurology Psychiatry; ATTEND Psychiatry & Neurology Psychiatry
DX: F33.3 Major depressive disorder, recurrent, severe with psychotic symptoms (principal); E11.9 Type 2 diabetes mellitus without complications; I10 Essential (primary) hypertension; I25.10 Atherosclerotic heart disease of native coronary artery without angina pectoris; E78.5 Hyperlipidemia, unspecified; G40.909 Epilepsy, unspecified, not intractable, without status epilepticus; J44.9 Chronic obstructive pulmonary disease, unspecified; K21.9 Gastro-esophageal reflux disease without esophagitis; E55.9 Vitamin D deficiency, unspecified; L30.9 Dermatitis, unspecified; Z86.73 Personal history of transient ischemic attack (TIA), and cerebral infarction without residual deficits; Z72.0 Tobacco use

== ENCOUNTER 2019-05-23 14:41 | Emergency (ER) | payer MEDICARE, MEDICAID ==
[~2019-05-23] VITALS: Ht 167.6 cm; Wt 66.8 kg
[~2019-05-23 14:41] MED LIST changes: +CLOTRIMAZOLE-BE30 ML TOPICAL; +DEPAKOTE ER500 MG PO; +VITAMIN D5000 UNIT PO; +ZYPREXA10 MG PO
[2019-05-23 14:43] VITALS: Ht 167.6 cm; Wt 66.8 kg
--- NOTE | 2019-05-23 15:36 | NUR ---
PT HAS A HX OF SUICIDE ATTEMPTS. PT DENIES SI AT THIS TIME. POOR EYE CONTACT NOTED. PT STATED, "I HAVE ATTEMPTED SUICIDE MULTIPLE TIME, BUT THEN I THINK ABOUT MY AND I FEEL SAD." PT HAS A PSYCH HISTORY. PT HAS BEEN HEARD MAKING STATEMENTS ABOUT SEEING WITCHES AND OTHER THINGS. PT ALSO HAS MADE RANDOM DELUSIONAL STATEMENTS. PT ASSESSMENT IS A MODERATE RISK. DR. VINES ORDERED A SITTER FOR SUICIDE RISK. ATTENDING NOTIFIED OF ASSESSMENT RESULTS. SAFETY PLAN INITIATED.
--- NOTE | 2019-05-23 15:48 | NUR ---
SPOKE WITH ATTENDING AND SPOUSE IN REGARDS TO ASSESSMENT RESULTS. PT SEES HIS PSYCHIATRIST NEXT WEEK AND WILL GET HIS INVEGA INJECTION WHICH CONTROLS HIS DEPRESSION. SPOUSE DOES NOT WANT THE PT TO BE ADMITTED.
[2019-05-23 15:50] LABS: BASOPHILS 0.3 % (0-2); EOSINOPHILS 1.6 % (0-7); HEMATOCRIT 42.8 % (42.0-54.0); HEMOGLOBIN 14.2 g/dL (13.5-17.5); IMMATURE GRANULOCYTES 0.3 % (0-5); LYMPHOCYTES 19.8 % (15-50); MCH 31.3 pg (26.0-34.0); MCHC 33.2 g/dL (31.0-37.0); MCV 94.3 fL (80.0-100.0); MEAN PLATELET VOLUME 9.1 fL (7.4-10.4); MONOCYTES 9.1 % (2-11); NEUTROPHILS 68.9 % (40-80); PLATELET COUNT 195 10x3/uL (130-400); RBC 4.54 10x6/uL (4.20-6.10); RDW 15.9 % (11.5-14.5); WBC 6.9 10x3/uL (4.8-10.8)
[2019-05-23 15:58] LABS: CALC OSMOLALITY 264 mosm/kg (275-300); CALCIUM 9.3 mg/dL (8.5-10.1); CARBON DIOXIDE 29.2 mmol/L (21.0-32.0); CHLORIDE - SERUM 99 mmol/L (98-107); GLUCOSE 98 mg/dL (74-106); POTASSIUM - SERUM 4.3 mmol/L (3.5-5.1); SODIUM 133 mmol/L (136-145); UREA NITROGEN 9 mg/dL (7-18); eGFR NON AFRICAN AMERICAN 79 mL/min (90-120)
[2019-05-23 16:05] LABS: ALBUMIN 3.4 g/dL (3.4-5.0); ALKALINE PHOSPHATASE 121 U/L (46-116); ALT (SGPT) 29 U/L (10-68); MAGNESIUM - SERUM 1.6 mg/dL (1.8-2.4); PROTEIN - SERUM 7.1 g/dL (6.4-8.2)
[2019-05-23 17:01] LABS: UDS - AMPHET POSITIVE QUAL (NEGATIVE); UDS - BARB NEGATIVE QUAL (NEGATIVE); UDS - BENZO NEGATIVE QUAL (NEGATIVE); UDS - COCAINE NEGATIVE QUAL (NEGATIVE); UDS - OPIATE NEGATIVE QUAL (NEGATIVE); UDS - PCP NEGATIVE QUAL (NEGATIVE); UDS - THC NEGATIVE QUAL (NEGATIVE)
[2019-05-23 17:28] VITALS: BP 158/73
[2019-05-23 17:33] LABS: APPEARANCE CLEAR (CLEAR); BILIRUBIN NEGATIVE (NEGATIVE); COLOR YELLOW (YELLOW); GLUCOSE NEGATIVE (NEGATIVE); KETONE NEGATIVE (NEGATIVE); NITRITE NEGATIVE (NEGATIVE); PROTEIN NEGATIVE (NEGATIVE); UROBILINOGEN NORMAL (NORMAL)
== END 2019-05-23 17:29 | disposition home or self-care (01) ==
LOC: D.ER 14:41
PROVIDERS: Family Medicine
DX: F20.9 Schizophrenia, unspecified (principal); E11.9 Type 2 diabetes mellitus without complications; Z79.84 Long term (current) use of oral hypoglycemic drugs; I10 Essential (primary) hypertension; Z72.0 Tobacco use; J44.9 Chronic obstructive pulmonary disease, unspecified

== ENCOUNTER 2020-02-04 14:44 | Inpatient (IN) | payer MEDICARE, MEDICAID ==
[~2020-02-04] VITALS: Ht 167.6 cm; Wt 68.2 kg
[2020-02-04] MEDS ORDERED: SEROQUEL300 MG PO (15:05)
[2020-02-04] MEDS ORDERED: MYSOLINE 50 MG50 MG PO (15:06)
[2020-02-04] MEDS ORDERED: TOFRANIL25 MG PO (15:08)
[2020-02-04] MEDS ORDERED: GABAPENTIN300 MG PO (15:11)
[2020-02-04 15:23] VITALS: BP 140/69
--- NOTE | 2020-02-04 15:23 | NUR ---
FSBS 126 PER EMS.
[2020-02-04] MEDS ORDERED: INVEGA SUS117 MG/0.7 IM (15:25)
--- NOTE | 2020-02-04 16:00 | NUR ---
SPOUSE REPORTS PT DOES NOT TAKE PAIN MEDICATIONS OTHER THAN TYLENOL.
[2020-02-04 16:24] VITALS: BP 128/70
--- NOTE | 2020-02-04 16:59 | NUR ---
URINE SENT TO THE LAB.
[2020-02-04 17:03] LABS: BASOPHILS 0.3 % (0-2); EOSINOPHILS 1.3 % (0-7); HEMATOCRIT 41.3 % (42.0-54.0); HEMOGLOBIN 13.3 g/dL (13.5-17.5); IMMATURE GRANULOCYTES 0.8 % (0-5); LYMPHOCYTES 21.1 % (15-50); MCH 31.4 pg (26.0-34.0); MCHC 32.2 g/dL (31.0-37.0); MCV 97.4 fL (80.0-100.0); MEAN PLATELET VOLUME 9.3 fL (7.4-10.4); NEUTROPHILS 64.5 % (40-80); PLATELET COUNT 206 10x3/uL (130-400); RBC 4.24 10x6/uL (4.20-6.10); WBC 7.6 10x3/uL (4.8-10.8)
[2020-02-04 17:07] LABS: APTT 27.7 SECONDS (22.8-39.4); INR 1.01 (0.85-1.17); PROTIME 13.2 SECONDS (11.6-15.0)
[2020-02-04 17:10] LABS: CALC OSMOLALITY 279 mosm/kg (275-300); CALCIUM 9.9 mg/dL (8.5-10.1); CARBON DIOXIDE 30.9 mmol/L (21.0-32.0); CHLORIDE - SERUM 106 mmol/L (98-107); CREATININE - SERUM 1.1 mg/dL (0.6-1.3); GLUCOSE 113 mg/dL (74-106); POTASSIUM - SERUM 4.7 mmol/L (3.5-5.1); SODIUM 141 mmol/L (136-145); UREA NITROGEN 8 mg/dL (7-18); eGFR NON AFRICAN AMERICAN 71 mL/min (90-120)
[2020-02-04 17:30] VITALS: BP 137/70
[2020-02-04 17:31] LABS: ALBUMIN 3.1 g/dL (3.4-5.0); ALKALINE PHOSPHATASE 123 U/L (30-120); ALT (SGPT) 27 U/L (10-68); BILIRUBIN - TOTAL 0.14 mg/dL (0.2-1.3); CKMB 1.6 U/L (0.0-3.6); CREATINE KINASE 103 UL (21-232); PROTEIN - SERUM 6.3 g/dL (6.4-8.2); THYROID STIMULATING HORMONE 1.25 uIU/mL (0.36-3.74)
[2020-02-04 17:33] LABS: TROPONIN-I 0.223 ng/mL (0.000-0.060)
[2020-02-04 17:34] LABS: UDS - AMPHET NEGATIVE QUAL (NEGATIVE); UDS - BARB NEGATIVE QUAL (NEGATIVE); UDS - BENZO NEGATIVE QUAL (NEGATIVE); UDS - COCAINE NEGATIVE QUAL (NEGATIVE); UDS - OPIATE NEGATIVE QUAL (NEGATIVE); UDS - PCP NEGATIVE QUAL (NEGATIVE); UDS - THC NEGATIVE QUAL (NEGATIVE)
[2020-02-04 17:48] LABS: BILIRUBIN NEGATIVE (NEGATIVE); GLUCOSE NEGATIVE (NEGATIVE); KETONE NEGATIVE (NEGATIVE); NITRITE NEGATIVE (NEGATIVE); UROBILINOGEN NORMAL (NORMAL)
[2020-02-04 17:53] LABS: RED CELLS - URINE 0-5 /hpf (0-5); WHITE CELLS - URINE 0-5 /hpf (NEGATIVE)
[2020-02-04 18:30] VITALS: BP 135/72
--- NOTE | 2020-02-04 19:20 | NUR ---
REPORT TO JYOTSNA DE LEON
[2020-02-04 19:26] VITALS: BP 146/71
[2020-02-04 20:00] VITALS: BP 166/78
--- NOTE | 2020-02-04 20:15 | NUR ---
BED BUGS NOTICED CLOTHES DOUBLE BAGGED AND SENT WITH . PATIENT SHOWERED IN DECONTAMINATION SHOWER. MULTIPLE BITES NOTED.
--- NOTE | 2020-02-04 20:20 | NUR ---
REPORT GIVEN TO Emigdio [facility] 2 .
--- NOTE | 2020-02-04 20:45 | NUR ---
PATIENT TO MED 2
[2020-02-04 22:13] VITALS: Ht 167.6 cm; Wt 68.2 kg
[2020-02-04 23:09] LABS: CKMB 1.7 U/L (0.0-3.6)
[2020-02-04 23:11] LABS: CREATINE KINASE 292 UL (21-232)
[2020-02-05] VITALS: BP 164/70
[2020-02-05 04:00] VITALS: BP 150/68
[2020-02-05 06:29] LABS: BASOPHILS 0.3 % (0-2); EOSINOPHILS 1.8 % (0-7); HEMATOCRIT 37.1 % (42.0-54.0); HEMOGLOBIN 11.9 g/dL (13.5-17.5); IMMATURE GRANULOCYTES 0.6 % (0-5); LYMPHOCYTES 25.1 % (15-50); MCH 30.8 pg (26.0-34.0); MCHC 32.1 g/dL (31.0-37.0); MCV 96.1 fL (80.0-100.0); MEAN PLATELET VOLUME 9.4 fL (7.4-10.4); MONOCYTES 11.1 % (2-11); NEUTROPHILS 61.1 % (40-80); PLATELET COUNT 224 10x3/uL (130-400); RBC 3.86 10x6/uL (4.20-6.10); RDW 16.1 % (11.5-14.5); WBC 6.5 10x3/uL (4.8-10.8)
--- NOTE | 2020-02-05 07:15 | NUR ---
WENT TO PATIENTS ROOM TO INTRODUCE MYSELF AND PATIENT ASK IF HE COULD WALK IN THE HALLWAY, I EXPLAINED THAT I HAD NOT GOT REPORT ON HIM YET BUT THERE WERE SIGNS ON THE DOOR THAT HE WAS IN ISOLATION AND HE COULD NOT LEAVE THE ROOM. AT 7:20 I GOT REPORT FROM OFFGOING NURSE STATING PATIENT HAD BEEN ASKING TO GO SMOKE ALL NIGHT AND BEEN TOLD IT WAS AGAINST HOSPITAL POLICY. WHEN ESTATE AND TRUST TAX PRINCIPAL WENT IN ROOM AT 7:30 TO TAKE VITAL SIGNS PATIENT WAS GONE FROM ROOM AND FOUND AT ER EXIT SMOKING. STATED HE WANTED TO LEAVE AMA. IV REMOVED, PAPERS SIGNED AND DR SINGH WHO WAS ON UNIT AT THE TIME WAS NOTIFIED. PATIENT LEFT TO MEET AT ER DOOR AT 7:45.
[2020-02-05 07:30] LABS: ALBUMIN 3.1 g/dL (3.4-5.0); ALKALINE PHOSPHATASE 115 U/L (30-120); ALT (SGPT) 26 U/L (10-68); CARBON DIOXIDE 29.2 mmol/L (21.0-32.0); CHLORIDE - SERUM 103 mmol/L (98-107); CKMB 1.2 U/L (0.0-3.6); CREATINE KINASE 287 UL (21-232); CREATININE - SERUM 1.1 mg/dL (0.6-1.3); GLUCOSE 92 mg/dL (74-106); POTASSIUM - SERUM 4.3 mmol/L (3.5-5.1); PROTEIN - SERUM 6.3 g/dL (6.4-8.2); SODIUM 138 mmol/L (136-145); eGFR NON AFRICAN AMERICAN 71 mL/min (90-120)
[2020-02-05 07:31] LABS: CALC OSMOLALITY 275 mosm/kg (275-300); UREA NITROGEN 12 mg/dL (7-18)
[2020-02-05 07:32] LABS: TROPONIN-I 0.158 ng/mL (0.000-0.060)
--- NOTE | 2020-02-05 11:59 | MORECARE ---
CASE MANAGEMENT DISCHARGE SUMMARY PATIENT: SUNITHA DELGADO UNIT: [id number] ADM DATE: 02/04/20 AGE: 69 : 52 SEX: M ROOM/BED: D.2104 AUTHOR: VANESSA RICE PHYSICIAN: REFERRING PHYSICIAN: ROHITH BORJA MD DATE OF SERVICE: 02/05/20 Discharge Plan Patient Name: SUNITHA DELGADO Facility: [facility]:[place] : 1950 Planned Disposition: Home Anticipated Discharge Date: 02/05/20 Discharge Date: 02/05/2020 Expected LOS: 1 Initial Reviewer: [email or web address] Initial Review Date: 02/04/2020 Generated: 02/05/20 12:58 pm Comments DCP- Discharge Planning Updated by [email or web address]: Helen Patel on 02/05/20 8:[address] Patient left AMA. Patient Name: SUNITHA DELGADO Page [id number] at 1159 All edits/amendments must be made on the electronic document DICTATION DATE: 02/05/20 1159 ENGINEERING AND SCIENTIFIC PROGRAMMER: GE 02/05/20 1159 RPT#: [id number] DC DATE:02/05/20 STATUS: DIS IN [facility] [address] [place] [address] END OF REPORT
--- NOTE | 2020-02-05 13:23 | HP ---
PATIENT: SUNITHA DELGADO MEDICAL RECORD: [id number] ACCOUNT: [id number] LOCATION:[address] : 54 ADMISSION DATE: 02/04/20 PCP: ROHITH LOREDO MD HISTORY AND PHYSICAL EXAMINATION DATE OF ADMISSION: 02/04/2020 CHIEF COMPLAINT: Acute mental status change/lethargy. HISTORY PRESENT ILLNESS: This is a 69-year-old man who looks much older than his stated age, who has a history of major depression with psychotic features, seizure disorder, heart disease, but well controlled diabetes, who reportedly lethargic since yesterday. EMS says he was slumped in his chair when they got there, but did arouse with tactile stimulation. His thinks he is taking too much of his medications. She is the distributor of his medications. She hands him all of them. In the ER, his lab was pretty much normal. His urine drug screen was negative. His troponin was elevated at 0.223. Chest x-ray was normal. CT of the head showed nothing acute. He is admitted for altered mental status and for elevated troponin. PAST MEDICAL AND SURGICAL HISTORY: Coronary artery disease, well controlled diabetes, hyperlipidemia, hypertension, migraine headaches, seizure disorder, major depression with psychotic features and hospitalized at [facility] within the last year or 2. PAST SURGICAL HISTORY: Cholecystectomy, tonsillectomy. He has coronary stents followed by [facility]. DRUG ALLERGIES: Unknown. HOME MEDICATIONS: Include Seroquel 300 mg at bedtime, metformin 500 mg twice a day, gabapentin 300 mg 3 times a day, atorvastatin 10 mg once a day, rizatriptan p.r.n. migraine headaches, divalproex ER 500 mg twice a day, primidone 50 mg twice a day, Protonix 40 mg once a day, montelukast 10 mg once a day, tizanidine 4 mg 4 times a day p.r.n. muscle spasm, Invega Sustenna IM via syringe, Lexapro 20 mg once a day, D3 5000 units once a day, ProAir HFA q.6 hours p.r.n. wheeze, Keppra 500 mg 3 p.o. b.i.d., Anoro 1 puff daily, Plavix 75 mg daily, atenolol 50 mg daily, aspirin 81 mg daily, and he may have recently started imipramine per 50 units daily. HABITS: He continues to smoke. Denies alcohol or drug use. SOCIAL HISTORY: , retired, was on disability. FAMILY HISTORY: Father is . He had heart disease and hypertension. Mother is . She had heart disease, hypertension and diabetes. REVIEW OF SYSTEMS: GENERAL: No major weight changes. HEENT: No particular sinus or allergy problems. RESPIRATORY: He has COPD and he continues to smoke. CARDIAC: History of coronary artery disease with stents. GASTROINTESTINAL: Has had heartburn in the past. GENITOURINARY: No significant problems there. MUSCULOSKELETAL: Has chronic back pain. HISTORY AND PHYSICAL [id number] SUNITHA DELGADO NEUROLOGIC: Has history of seizure disorder. PSYCHIATRIC: History of major depression with psychotic features. PHYSICAL EXAMINATION: VITAL SIGNS: Temperature 98.3, pulse 101, respirations 14, blood pressure 131/73, O2 sat 98%. GENERAL: He was reported to be lethargic in the Emergency Department, he may wake up and try to say a few words and go right back to sleep. This evening when I went and saw him, he was awake. He was watching TV. He recognized me immediately as Dr. Loredo. When I asked him what happened, he says he is not sure. I asked him if he took too many of his pills, he states that his has been distributing his pills for him for years. He denied chest pain, shortness of breath. NECK: Supple. No JVD or bruit. HEART: Regular rate and rhythm. LUNGS: Clear. ABDOMEN: Soft, flat, nontender. EXTREMITIES: No edema. NEUROLOGIC: Intact. LABORATORY DATA: CBC showed a white count of 7600, hemoglobin 13.3, hematocrit 41.3. Basic metabolic panel is normal. Liver functions are normal. Urinalysis is normal. Urine drug screen is negative. INR 1.01, magnesium 2.0. Troponin elevated at 0.223. DIAGNOSTIC DATA: Chest x-ray shows nothing acute. CT of the head showed nothing acute. ASSESSMENT: 1. Elevated troponin. 2. Altered mental status, possibly due to his psych meds. PLAN: We will pick and choose and hold some of his psych meds this evening and see how he is doing tomorrow, will consult cardiology for his elevated troponin. Other tests or procedures as warranted. TRANSINT:[id number] Voice Confirmation ID: [id number] DOCUMENT ID: [id number] ROHITH LOREDO MD at 1323 CC: [id number] DICTATION DATE: 02/04/202309 CASH REGISTER REPAIRER: 02/05/20 1011 DIS IN 02/05/20 [place] [id number] [place] [id number]
== END 2020-02-05 07:45 | disposition left against medical advice (07) | DRG 918 ==
LOC: D.ER 14:44 → D.M2 19:28
PROVIDERS: Family Medicine; ADMIT Family Medicine; ATTEND Family Medicine
DX: T43.91XA Poisoning by unspecified psychotropic drug, accidental (unintentional), initial encounter (principal); R41.82 Altered mental status, unspecified; F20.9 Schizophrenia, unspecified; J44.9 Chronic obstructive pulmonary disease, unspecified; I25.10 Atherosclerotic heart disease of native coronary artery without angina pectoris; E11.9 Type 2 diabetes mellitus without complications; E78.5 Hyperlipidemia, unspecified; I10 Essential (primary) hypertension; G40.909 Epilepsy, unspecified, not intractable, without status epilepticus; R79.89 Other specified abnormal findings of blood chemistry

== ENCOUNTER → 2020-04-13 10:55 | Outpatient (CLI) | payer MEDICARE, MEDICAID ==
[~2020-04-13 10:55] MED LIST changes: +GABAPENTIN300 MG PO; +INVEGA SUS117 MG/0.7 IM; +SEROQUEL300 MG PO; +TOFRANIL25 MG PO
== END | disposition home or self-care (01) ==
LOC: D.HCCECHO 10:55
PROVIDERS: ATTEND Internal Medicine Cardiovascular Disease
DX: I35.1 Nonrheumatic aortic (valve) insufficiency (principal)

== ENCOUNTER 2020-04-21 11:44 | Day surgery (SDC) | payer MEDICARE, MEDICAID ==
[~2020-04-21] VITALS: Ht 167.6 cm; Wt 73.4 kg
--- NOTE | ~2020-04-21 | HEMODYNAMI ---
PATIENT:SUNITHA DELGADO MEDICAL RECORD: [id number] : 54 LOCATION:NATE ADMISSION DATE: 04/21/20 Generatedon:04/21/202014:27 Patient name: SUNITHA DELGADO Patient #: [id number] SSN: [id number] : 1950 Date of study: 04/21/2020 Page: Of Hemodynamic Procedure Report Patient Data Patient Demographics Procedure consent was obtained First Name: SUNITHA Gender: Male Last Name: DANNY : 1950 Middle Initial: L Age: 69 year(s) Patient #: [id number] Race: SSN: [id number] Additional ID: [id number] Contact details Address: [address] [place] [address] State: [place] City: [facility] Zip code: [address] Past Medical History History of disease Date Diagnosis Comments CAD CHF Chronic lung disease Allergies: No known allergies Admission Admission Data Admission Date: 04/21/2020 Admission Time: 11:44 Arrival Date: 04/21/2020 Arrival Time: 0:00 Admit Source: Other Height (in.): 67 BSA: 1.85 (m2) Height (cm.): 170.18 BMI: 25.53 (kg/m2) Weight (lbs.): 163 Weight (kg.): 73.94 Lab Results Lab Result Date: 04/21/2020 Lab Result Time: 0:00 Biochemistry Name Units Result Min Max BUN mg/dl 12 --(-*--)-- 7 18 Creatinine mg/dl 1.2 --(---*)-- 0.6 1.3 eGFR ml/min 64.45214 *-(----)-- 90 120 NONAFRICAN CBC Name Units Result Min Max Hematocrit % 43.8 --(*---)-- 42 54 Hemoglobin g/dl 14 --(*---)-- 13.5 17.5 Procedure Procedure Types Cath Procedure Diagnostic Procedure LHC LHC w/Coronaries FFR/IVUS FFR Initial Aortic Root Angiography Sedation Charges Moderate Sedation 25-39 minutes PCI Procedure Coronary Stent Coronary Stent Initial Hemochron ACT Test Procedure Description Procedure Date Procedure Date: 04/21/2020 Procedure Start Time: 13:47 Procedure End Time: 14:23 Procedure Staff Name Function Jerry Calles MD Performing Physician Robyn Akers RT Monitor Lars Stinson RN Nurse Juana Ly RT Scrub Indication CHF Procedure Data Cath Procedure Fluoroscopy Diagnostic fluoroscopy Total fluoroscopy Time: 5.1 time: 5.1 min min Diagnostic fluoroscopy Total fluoroscopy dose: 698 dose: 698 mGy mGy Contrast Material Contrast Material Type Amount (ml) Isovue 300 107 Entry Location Entry Primary Successful Side Size Upsize Upsize Entry Closure Succes sful Closure Location (Fr) 1 (Fr) 2 (Fr) Remarks Device Remarks Femoral Right 5 Fr 6 Fr Exoseal artery Short Estimated blood loss: 10 ml Diagnostic catheters Device Type Used For End Catheter Placement MULTIPACK JL 4.0 5Fr Left Coronary catheter Angiography MULTIPACK 3DRC 5Fr Right Coronary catheter Angiography MULTIPACK Pigtail 5 Fr LV Angiography catheter MULTIPACK JL 4.0 5Fr Procedure catheter Procedure Complications No complications Procedure Medications Medication Administration Route Dosage Oxygen etCO2 Nasal cannula 2 l/min Lidocaine 2% added to field 20 Heparin Flush Bag added to field 2 bags (1000units/500ml NS) 0.9% NaCl I.V. 100 ml/hr Versed I.V. 1 mg Fentanyl I.V. 50 mcg Heparin Bolus I.V. 3000 units Heparin Bolus I.V. 4000 units Plavix P.O. 75 mg Versed I.V. 1 mg Fentanyl I.V. 50 mcg Hemodynamics Rest BSA: 1.85 (m2) HGB: 14 (g/dl) O2 Consumption: Estimated: 211.48 (ml/min) O2 Cons umption indexed: Estimated:114.31 (ml/min/m) Heart Rate: 65 (bpm) Pressure Samples Time Site Value (mmHg) Purpose Heart Use Rate(bpm) 13:55 LV 106/-4,14 Snapshot 81 13:56 AO 104/44(71) Pullback 70 13:56 LV 154/3,26 Pullback 70 Gradients Valve Time Site 1 Site 2 Mean SEP/DFP Peak To Heart Use (mmHg) (sec/min) Peak Rate (mmHg) (bpm) Aortic 13:56 LV AO 19 23 50 70 154/3,26 104/44(71) Calculations Valve P-P Mean Valve Index Valve Source Name Gradient Area Flow (cm2) Aortic 50 19 50 19 Snapshots Pre Cath Intra NCS Post Cath Vital Signs Time Heart Resp SPO2 etCO2 NIBP (mmHg) Rhythm Pain Sedation Rate (ipm) (%) (mmHg) Status Level (bpm) 13:37:58 66 17 98 39 137/68(107) NSR 0 (11) 10(A) , No pain 13:42:18 65 18 96 33.8 121/66(91) NSR 0 (11) 10(A) , No pain 13:46:32 66 17 99 41.3 110/63(97) NSR 0 (11) 10(A) , No pain 13:50:46 66 16 98 43.6 112/64(85) NSR 0 (11) 9(A) , No pain 13:55:00 69 16 97 42.8 121/63(90) NSR 0 (11) 9(A) , No pain 13:59:16 71 16 97 39.8 122/64(92) NSR 0 (11) 9(A) , No pain 14:03:26 70 16 97 43.5 102/65(91) NSR 0 (11) 9(A) , No pain 14:07:38 72 16 99 18 112/59(84) NSR 0 (11) 9(A) , No pain 14:11:50 71 17 99 39.8 114/62(90) NSR 0 (11) 9(A) , No pain 14:16:02 72 16 100 39.8 126/71(98) NSR 0 (11) 10(A) , No pain 14:20:18 72 17 99 39.7 131/74(111) NSR 0 (11) 10(A) , No pain Medications Time Medication Route Dose Verified Delivered Reason Notes Effectiveness by by 13:37:19 Oxygen etCO2 2 Jerry Buffie used for Nasal l/min Demar Stinson RN procedure cannula 13:37:30 Lidocaine 2% added 20ml Jerry Jerry for local to vial Demar Calles MD anesthetic field 13:37:36 Heparin Flush added 2 Jerry Jerry used for Bag to bags Demar Calles MD procedure (1000units/500ml field NS) 13:37:46 0.9% NaCl I.V. 100 Jerry Buffie Per physician ml/hr Demar Stinson RN 13:44:16 Versed I.V. 1 mg Jerry Buffie for sedation Demar Stinson RN 13:44:22 Fentanyl I.V. 50 Jerry Buffie for sedation mcg Demar Stinson RN 13:51:03 Fentanyl I.V. 50 Jerry Buffie for sedation mcg Demar Stinson RN 13:51:59 Versed I.V. 1 mg Jerry Buffie for sedation Demar Stinson RN 14:02:01 Heparin Bolus I.V. 3000 Jerry Buffie for verif ied units Demar Stinson RN anticoagulation with dr calles for ifr 14:10:15 Heparin Bolus I.V. 4000 Jerry Buffie for verif ied units Demar Stinson RN anticoagulation with dr calles 14:18:14 Plavix P.O. 75 mg Jerry Buffie for Demar Stinson RN antiplatelet therapy Procedure Log Time Note 13:12:53 Arrival Date: 04/21/2020 12:00:00 AM 13:12:54 Admit Source: Other 13:13:13 Patient Height : 67 inches 13:13:27 Patient Weight : 163 lbs 13:20:02 Indication : CHF 13:20:09 Informed consent obtained and on chart 13:22:55 Lars Stinson RN sent for patient. Start room use. 13:23:00 Procedure Status Elective Heart Cath (OP). 13:23:04 Time tracking: Regular hours (M-F 7:00 - 5:00) 13:23:12 Plan of Care:Hemodynamics will remain stable., Cardiac rhythm will remain stable., Comfort level will be maintained., Respiratory function will remain adequate., Patient/ family verbilizes understanding of procedure., Procedure tolerated without complication., Recovers from procedure without complications.. 13:23:25 Patient allergic to No known allergies 13:23:36 H&P Date Dictated: 04/21/2020 H&P Addendum completed by physician on da y of procedure. (MUST COMPLETE FOR ALL OUTPATIENTS), New H&P dictated by physician.. 13:23:44 Pre-procedure instructions explained to patient. 13:23:45 Pre-op teaching completed and patient verbalized understanding. 13:25:39 Patient received from Pre/Post Procedure Room to CCL 1 Alert and oriented. Tansferred to table in Supine position. 13:25:42 Warm blankets applied, and daniele hugger turned on for patient comfort. 13:25:42 Correct patient and procedure confirmed by team. 13:25:43 ECG and BP/O2 sat monitors applied to patient. 13:25:53 Is the patient allergic to Iodine/contrast media? No. 13:25:59 Was the patient premedicated? Yes 13:26:02 Is patient on blood thinner?Yes 13:26:07 ACC The patient was administered the following blood thiners within the last 24 hours: ACCPlavix 13:26:11 Patient diabetic? Yes. 13:29:22 If diabetic: On Metformin? Yes 13:29:25 If on Metformin: Last Dose? 04/20/2020 13:29:28 Previous problem with sedation/anesthesia? No ? 13:29:29 Snore? Yes 13:29:30 Sleep apnea? No 13:29:31 Deviated septum? No 13:29:32 Opens mouth fully? Yes 13:29:33 Sticks out tongue? Yes 13:29:35 Airway obstruction? No ? 13:29:38 Dentures? No ? 13:29:57 Patient pain scale 10/10 ?. 13:30:01 Pre procedure: right dorsailis pedis pulse 1+ Palpable, but thready & weak; easily obliterated 13:30:12 IV patent on arrival in right forearm with 0.9% NaCl at KVO. 13:32:04 Lab Result : Creatinine 1.2 mg/dl 13:32:04 Lab Result : BUN 12 mg/dl 13:32:04 Lab Result : eGFR NONAFRICAN 64.32724 ml/min 13:32:04 Lab Result : Hemoglobin 14 g/dl 13:32:04 Lab Result : Hematocrit 43.8 % 13:32:06 Lab results completed and on chart. 13:32:11 Right groin area was prepped with chlora-prep and draped in sterile fashion 13:32:13 Alarms reviewed by R. N. 13:32:13 Sharps counted by scrub and verified by R.N. 13:32:15 Use device set Femoral Dx 13:32:16 ACIST Syringe (08277) opened to sterile field. 13:32:17 Bag Decanter () opened to sterile field. 13:32:18 ACIST Hand Control (83453) opened to sterile field. 13:32:18 ACIST Manifold (36918) opened to sterile field. 13:32:19 Tegaderm 4 x 4 (1626W) opened to sterile field. 13:32:20 Medline Cath Pack ([id number]) opened to sterile field. 13:32:21 DIAGNOSTIC Multipack 5Fr catheter set (JF9716) opened to sterile field. 13:32:22 SHEATH 5FR [place] (XVX513) opened to sterile field. 13:32:22 EMERALD Guide Wire (061-808) opened to sterile field. 13:36:45 Vital chart was started 13:36:49 Baseline sample Acquired. 13:36:55 Rhythm: sinus rhythm 13:36:58 Full Disclosure recording started 13:36:59 - 13:37:19 Oxygen 2 l/min etCO2 Nasal cannula was administered by Lars Stinson RN; used for procedure; Verbal order read back and verified. 13:37:23 Family in patients room. 13:37:26 Patient NPO since Midnight. 13:37:30 Lidocaine 2% 20ml vial added to field was administered by Jerry Calles MD ; for local anesthetic; Verbal order read back and verified. 13:37:36 Heparin Flush Bag (1000units/500ml NS) 2 bags added to field was administered by Jerry Calles MD; used for procedure; Verbal order read back and verified. 13:37:46 0.9% NaCl 100 ml/hr I.V. was administered by Lars Stinson RN; Per physician; Verbal order read back and verified. 13:38:14 Stress Test: no; N/A ? 13:41:48 Physician arrived 13:41:49 --------ALL STOP TIME OUT------ 13:41:50 Final Timeout: patient, procedure, and site verified with staff and physician. All members of the team are in agreement. 13:41:53 Right groin site verified by team. 13:41:59 Fire Safety Assessment: A--An alcohol-based skin anteseptic being used preoperatively., C--Open oxygen or nitrous oxide is being used., D--An ESU, laser, or fiber-optic light is being used. 13:42:04 Physical assessment completed. ASA score P 2 - A patient with mild systemic disease as per Jerry Calles MD. 13:42:09 2) 60-89 Mildly reduced kidney function, and other findings (as for stage 1) point to kidney disease. 13:42:15 Maximum allowable contrast dose (3.7 X eGFR X 0.75)177 ml. 13:42:27 Sedation plan: IV Moderate Sedation Medication:Versed, Fentanyl 13:42:38 Risk of Mortality: 0.1 13:42:42 Risk of blood transfusion: 0.3 13:42:47 Risk of JADYN: 0.1 13:44:16 Versed 1 mg I.V. was administered by Lars Stinson RN; for sedation; Verbal order read back and verified. 13:44:22 Fentanyl 50 mcg I.V. was administered by Lars Stinson RN; for sedation; Verbal order read back and verified. 13:44:40 Zero performed for pressure channel P1 13:47:24 Procedure started. 13:47:46 Local anesthetic to right femoral artery with Lidocaine 2% by Jerry reyes MD.INITIAL ACCESS ONLY 13:49:47 A 5 Fr sheath was inserted into the Right Femoral artery 13:49:54 A MULTIPACK JL 4.0 5Fr catheter was advanced over the wire and used for Left Coronary Angiography. 13:50:55 LCA angiography performed. 13:50:59 Injector settings: Ml/sec: 3, Volume: 6, 13:51:03 Fentanyl 50 mcg I.V. was administered by Lars Stinson RN; for sedation; Verbal order read back and verified. 13:51:59 Versed 1 mg I.V. was administered by Lars Stinson RN; for sedation; Verbal order read back and verified. 13:52:14 Catheter removed. 13:52:33 A MULTIPACK 3DRC 5Fr catheter was advanced over the wire and used for Right Coronary Angiography. 13:52:40 Injector settings: Ml/sec: 3, Volume: 6, 13:53:33 RCA angiography performed. 13:54:17 Catheter removed. 13:54:27 A MULTIPACK Pigtail 5 Fr catheter was advanced over the wire and used for LV Angiography. 13:55:02 Injector settings: Ml/sec: 5, Volume: 15, 13:55:06 LV gram done using ROSALES 13:55:48 EF : 60 % 13:56:18 LV hemodynamics recorded. 13:56:20 Aortic Root visualized 13:56:28 Injector settings: Ml/sec: 10, Volume: 20, 13:56:55 Catheter removed. 13:59:56 INFLATOR Merit BasixCompak (ER9812) opened to sterile field. 14:00:29 Mindscorerata Plus pressure wire (64105T) opened to sterile field. 14:00:53 TUBING High Pressure Extension Tubing (Demar) (PF0348U) opened to sterile field. 14:02:01 Heparin Bolus 3000 units I.V. was administered by Lars Stinson RN; for anticoagulation; verified with dr calles for ifr Verbal order read back and verified. 14:04:30 A MULTIPACK JL 4.0 5Fr catheter was advanced over the wire and used for Procedure. 14:04:37 FFR/IFR wire advanced. 14:05:18 Wire advanced across lesion. 14:05:27 mLAD lesion measured at 0.83 with IFR 14:06:42 Proceeding to intervention. 14:07:50 GUIDE 6FR XBLAD 3.5 catheter ([id number]) opened to sterile field. 14:07:51 SHEATH 6FR [place] (OQH257) opened to sterile field. 14:08:22 Catheter removed. 14:08:35 Sheath upsized to a 6 Fr Short. 14:08:41 ACC Pre-intervention OBINNA Flow is 3. 14:08:44 ifr wire removed. 14:09:05 6 Fr xblad3.5 guide catheter was inserted over the wire 14:09:40 Pre PCI Site: [place] pLAD has 80% stenosis. 14:10:15 Heparin Bolus 4000 units I.V. was administered by Lars Stinson RN; for anticoagulation; verified with dr calles Verbal order read back and verified. 14:10:16 BMW 300cm [place] 2 J wire (6073957N) opened to sterile field. 14:12:18 abe516 wire advanced. 14:12:27 Wire advanced across lesion. 14:15:03 Place stent Inflation Number: 1 A COURTNEY RX 3.5 x 18 stent ([id number]) was prepped and advanced across the Prox LAD . The stent was deployed at 13 SCOTTIE for 0:20 (min:sec) . 14:15:09 Stent catheter was removed intact over wire. 14:15:12 Wire removed. 14:15:13 Guide catheter removed. 14:15:45 EXOSEAL 6Fr (EX600) opened to sterile field. 14:16:09 Sheath removed intact; hemostasis achieved with Exoseal to the Right Femoral artery. 14:16:13 Procedure ended.(Physican Out) 14:16:23 Contrast amount:Isovue 300 107ml. 14:16:33 Fluoroscopy time 05.10 minutes. 14:16:39 Fluoroscopy dose: 698 mGy 14:16:39 Flurop Dose total: 698 14:16:48 Dose Area Product 90249 mGy/cm. 14:16:51 Maximum allowable dose exceeded? No. 14:16:53 Sharps counted by scrub and verified by R.N. 14:17:01 Post-op/insertion site Right Femoral artery dressed using a 4 x 4 and Tegaderm. 14:17:14 Post-procedure physical assessment completed. ASA score P 2 - A patient with mild systemic disease as per Jerry Calles MD. 14:17:34 Post procedure rhythm: unchanged. 14:17:54 Estimated blood loss: 10 ml 14:17:58 Post procedure instruction explained to patient.Patient verbalizes understanding. 14:18:05 Patient needs reinforcement of post procedure teaching. 14:18:14 Plavix 75 mg P.O. was administered by Lars Stinson RN; for antiplatelet therapy; Verbal order read back and verified. 14:21:20 Procedure type changed to Cath procedure, Diagnostic procedure, LHC, LH C w/Coronaries, FFR/IVUS, FFR Initial, Aortic Root Angiography, Sedation Charges, Moderate Sedation 25-39 minutes, PCI procedure, Coronary Stent, Coronary Stent Initial, Hemochron ACT Test 14:21:22 Procedure and supply charges have been captured, reviewed, submitted an d are correct. 14:22:28 ACT drawn and resulted at out of range high seconds. (normal therapeuti c range 180-240 seconds). 14:22:40 Procedure Complication : No complications 14:22:48 Vital chart was stopped 14:22:51 [facility] Findings: MVD- PCI performed (see procedure note) 14:22:53 See physician's report for complete and final results. 14:22:56 Report given to Pre/Post Procedure Room. 14:23:01 Patient transfered to Pre/Post Procedure Room with Stretcher. 14:23:53 Procedure ended. 14:23:53 Full Disclosure recording stopped 14:24:01 ACC-PCI Only Patient was given prescriptions, or instructed by Jerry Calles MD to start/continue the following medications upon discharge: Plavix 14:24:04 End room use (Document Last) Intervention Summary Intervention Notes Time ActionType Lesion and Equipment Used Action# Pressure Duration Attributes 14:15:03 Place stent Prox LAD COURTNEY RX 3.5 x 1 13 00:20 18 stent ([id number]) Device Usage Item Name Manufacture Quantity Catalog Hospital Part Current Minimal Lot# / Number Charge Number Stock Stock Serial# Code ACIST Syringe Acist 1 48537 042982 170191 577642 20 (53385) Medical Systems Inc Bag Decanter Microtek 1 2002S 196713 81014 847316 5 (2001S) Medical Inc. ACIST Hand Acist 1 28080 540790 658592 793550 5 Control Medical (97307) Systems Inc ACIST Manifold Acist 1 85657 524877 938708 479536 5 (88281) Medical Systems Inc Tegaderm 4 x 4 3M 1 1626W 377996 522576 527951 5 (1626W) Medline Cath Medline 1 [id number] 308122 79998 260958 5 Pack ([id number]) DIAGNOSTIC Cardinal 1 CO4983 358874 60828 068002 30 Multipack 5Fr Health catheter set (UX9112) SHEATH 5FR Terumo 1 WMA823 814842 721623 898350 5 [place] (MPZ922) EMERALD Guide Cardinal 1 502-154 064116 882988 448508 5 Wire (502-530) Health MULTIPACK JL Cardinal 1 816443 5 4.0 5Fr Health catheter MULTIPACK 3DRC Cardinal 1 435710 5 5Fr catheter Health MULTIPACK Cardinal 1 221209 5 Pigtail 5 Fr Health catheter INFLATOR Merit Merit 1 NA0332 604170 297960 896405 15 BasixCompak Medical (PT8996) [place] 1 59646T 389356 033927296 627266 5 Verrata Plus pressure wire (92848X) TUBING High Merit 1 [id number] 421310 02343 778648 10 Pressure Medical Extension Tubing (Demar) (SV5826T) GUIDE 6FR Cardinal 1 [id number] 284298 825517 056178 10 XBLAD 3.5 Health catheter (65061133) SHEATH 6FR Terumo 1 WGY443 381804 817937 063381 40 [place] (UXD360) BMW 300cm [place] 1 [id number] 706322 579558 144473 5 [place] 2 J Vascular wire ([id number]) COURTNEY RX 3.5 x Medtronic 1 [id number] 893617 9008760 940545 5 [id number] 18 stent ([id number]) EXOSEAL 6Fr Cardinal 1 EX600 001462 128733 033056 10 (EX600) Health Signature Audit [place] Stage Time Signature Unsigned Intra-Procedure 04/21/2020 Robyn 2:26:07 PM Oswald RT(R) (CV) Intra-Procedure 04/21/2020 Lars Stinson RN 2:26:40 PM Intra-Procedure 04/21/2020 Jerry Calles MD 2:27:13 PM [facility] [address] [place] [address]
[2020-04-21] MEDS ORDERED: VISTARIL25 MG PO (12:34)
[2020-04-21] MEDS ORDERED: NITROQUICK0.4 MG SL (12:35)
[2020-04-21 12:45] VITALS: BP 157/70; Ht 167.6 cm; Wt 73.4 kg
[2020-04-21 13:07] LABS: BASOPHILS 0.3 % (0-2); EOSINOPHILS 1.3 % (0-7); HEMATOCRIT 43.8 % (42.0-54.0); IMMATURE GRANULOCYTES 0.3 % (0-5); LYMPHOCYTES 21.2 % (15-50); MCH 29.3 pg (26.0-34.0); MCV 91.6 fL (80.0-100.0); MONOCYTES 10.6 % (2-11); NEUTROPHILS 66.3 % (40-80); PLATELET COUNT 237 10x3/uL (130-400); RBC 4.78 10x6/uL (4.20-6.10); RDW 17.5 % (11.5-14.5); WBC 7.5 10x3/uL (4.8-10.8)
[2020-04-21 13:19] LABS: ANION GAP 8.4 mmol/L (8-16); CALCIUM 10.2 mg/dL (8.5-10.1); CHOL - HDL RATIO 2.6 ratio (2.3-4.9); CREATININE - SERUM 1.2 mg/dL (0.6-1.3); POTASSIUM - SERUM 4.4 mmol/L (3.5-5.1)
--- NOTE | 2020-04-21 14:33 | NUR ---
PT ARRIVED BY STRETCHER. PLACED ON MONITORS. ASSESSMENT COMPLETED. VSS AT THIS TIME. CALL LIGHT WITHIN REACH. FAMILY AT BEDSIDE.
--- NOTE | 2020-04-21 14:48 | NUR ---
RIGHT GROIN DRESSING C/D/I. NO S/S OF HEMATOMA NOTED. CALL LIGHT WITHIN REACH. VSS AT THIS TIME.
--- NOTE | 2020-04-21 15:15 | NUR ---
RIGHT GROIN DRESSING C/D/I. NO S/S OF HEMATOMA NOTED. CALL LIGHT WITHIN REACH. VSS AT THIS TIME. FAMILY AT BEDSIDE.
--- NOTE | 2020-04-21 15:45 | NUR ---
RIGHT GROIN DRESSING C/D/I. NO S/S OF HEMATOMA NOTED. CALL LIGHT WITHIN REACH. VSS AT THIS TIME. FAMILY AT BEDSIDE.
--- NOTE | 2020-04-21 15:45 | NUR ---
PT RESTING COMFORTABLY. VSS. RIGHT GROIN DRESSING C/D/I. NO S/S OF HEMATOMA NOTED.
--- NOTE | 2020-04-21 16:00 | NUR ---
DR. BROOKE ROUNDED AND SPOKE WITH PT AND PT'S .
--- NOTE | 2020-04-21 16:15 | NUR ---
RIGHT GROIN DRESSING C/D/I. NO S/S OF HEMATOMA NOTED. CALL LIGHT WITHIN REACH. FAMILY AT BEDSIDE. PT RESTING COMFORTABLY. RIGHT PEDAL PULSE PALPABLE.
--- NOTE | 2020-04-21 17:15 | NUR ---
RIGHT GROIN DRESSING C/D/I. NO S/S OF HEMATOMA NOTED. PT VOIDED 300cc OF CLEAR YELLOW URINE IN URINAL. RIGHT PEDAL PULSE PALPABLE. PT'S HEAD OF BED INC TO 30 DEGREES. TOLERATED WELL. SET UP WITH SANDWICH TRAY AND DRINK. DENIES NAUSEA/PAIN. FAMILY AT BEDSIDE WILL CONTINUE TO MONITOR.
--- NOTE | 2020-04-21 17:15 | NUR ---
RIGHT GROIN DRESSING C/D/I. NO S/S OF HEMATOMA NOTED. CALL LIGHT WITHIN REACH. VSS AT THIS TIME. HEAD OF BED INC TO 30 DEGREES. TOLERATED WELL. DENIES NAUSEA/PAIN. RIGHT GROIN DRESSING C/D/I. NO S/S OF HEMATOMA NOTED.
--- NOTE | 2020-04-21 18:00 | NUR ---
RIGHT GROIN DRESSING C/D/I. NO S/S OF HEMATOMA NOTED. PIV D/C'D WITH CATH TIP INTACT. DISCUSSED DISCHARGE INSTRUCTIONS WITH PT AND PT'S FAMILY. THEY VOICED UNDERSTANDING. PT INSTRUCTED TO GET UP AND DRESSED AT THIS TIME. NO ASSISTANCE NEEDED. FAMILY AT BEDSIDE.
--- NOTE | 2020-04-21 18:20 | NUR ---
RIGHT GROIN DRESSING C/D/I. NO S/S OF HEMATOMA NOTED. PT AMBULATED TO RESTROOM. VOIDED WITHOUT DIFFICULTY. STEADY GAIT NOTED. PT TAKEN OUT TO VEHICLE BY WHEELCHAIR. NO S/S OF DISTRESS NOTED. ALL BELONGINGS AND PAPERWORK IN HAND.
== END 2020-04-21 18:20 | disposition home or self-care (01) ==
LOC: D.CATH 11:44
PROVIDERS: ATTEND Internal Medicine Cardiovascular Disease
DX: I25.110 Atherosclerotic heart disease of native coronary artery with unstable angina pectoris (principal); E11.9 Type 2 diabetes mellitus without complications; Z72.0 Tobacco use; Z79.84 Long term (current) use of oral hypoglycemic drugs; K21.9 Gastro-esophageal reflux disease without esophagitis; J44.9 Chronic obstructive pulmonary disease, unspecified; I11.0 Hypertensive heart disease with heart failure; I50.9 Heart failure, unspecified; I35.0 Nonrheumatic aortic (valve) stenosis
CPT/HCPCS: 93458; 93571; 93567; C9600

== ENCOUNTER 2020-09-24 15:22 | Emergency (ER) | payer MEDICARE, MEDICAID ==
[~2020-09-24] VITALS: Ht 167.6 cm; Wt 70.9 kg
[~2020-09-24 15:22] MED LIST changes: +VISTARIL25 MG PO
[2020-09-24 15:36] VITALS: BP 162/76; Ht 167.6 cm; Wt 70.9 kg
== END 2020-09-24 16:18 | disposition home or self-care (01) ==
LOC: D.ER 15:22
DX: M54.5 Low back pain (principal); G89.29 Other chronic pain; Z86.73 Personal history of transient ischemic attack (TIA), and cerebral infarction without residual deficits; E11.9 Type 2 diabetes mellitus without complications; I10 Essential (primary) hypertension; J44.9 Chronic obstructive pulmonary disease, unspecified; K21.9 Gastro-esophageal reflux disease without esophagitis; Z72.0 Tobacco use; Z79.84 Long term (current) use of oral hypoglycemic drugs

== ENCOUNTER → 2020-12-13 20:31 | Outpatient (CLI) | payer MEDICARE, MEDICAID ==
[2020-09-24 15:36] VITALS: BMI 25.2
== END | disposition home or self-care (01) ==
LOC: D.LABREF 20:31
PROVIDERS: ATTEND Orthopaedic Surgery
DX: M17.12 Unilateral primary osteoarthritis, left knee (principal)

== ENCOUNTER 2020-12-18 15:53 | Inpatient (IN) | payer MEDICARE, MEDICAID ==
[~2020-12-18] VITALS: Ht 167.6 cm; Wt 71.4 kg
--- NOTE | 2020-12-18 16:37 | NUR ---
NASAL SWABS X 2 COLLECTED, LABELED AT BS AND SENT TO LAB
[2020-12-18 17:36] LABS: SARS-CoV-2 ANTIGEN NEGATIVE- SARS-COV-2 (NEGATIVE)
[2020-12-18 17:59] VITALS: BP 127/61
[2020-12-18 18:05] VITALS: BP 146/59
[2020-12-18 18:05] LABS: BASOPHILS 0.9 % (0-2); EOSINOPHILS 1.7 % (0-7); HEMATOCRIT 35.3 % (42.0-54.0); LYMPHOCYTES 22.9 % (15-50); MCH 28.5 pg (26.0-34.0); MCHC 34.1 g/dL (31.0-37.0); MCV 83.6 fL (80.0-100.0); MEAN PLATELET VOLUME 7.2 fL (7.4-10.4); MONOCYTES 7.6 % (2-11); NEUTROPHILS 66.9 % (40-80); PLATELET COUNT 257 10x3/uL (130-400); RBC 4.22 10x6/uL (4.20-6.10); RDW 19.7 % (11.5-14.5); WBC 8.6 10x3/uL (4.8-10.8)
[2020-12-18 18:13] LABS: CALC OSMOLALITY 250 mosm/kg (275-300); CALCIUM 8.9 mg/dL (8.5-10.1); CARBON DIOXIDE 26.5 mmol/L (21.0-32.0); CHLORIDE - SERUM 92 mmol/L (98-107); CREATININE - SERUM 1.3 mg/dL (0.6-1.3); GLUCOSE 115 mg/dL (74-106); POTASSIUM - SERUM 4.5 mmol/L (3.5-5.1); SODIUM 124 mmol/L (136-145); UREA NITROGEN 13 mg/dL (7-18); eGFR NON AFRICAN AMERICAN 58 mL/min (90-120)
[2020-12-18 18:31] LABS: ALBUMIN 3.7 g/dL (3.4-5.0); ALKALINE PHOSPHATASE 110 U/L (30-120); ALT (SGPT) 20 U/L (10-68); BILIRUBIN - TOTAL 0.31 mg/dL (0.2-1.3); CKMB 0.9 U/L (0.0-3.6); CREATINE KINASE 65 UL (21-232); PRO BNP 384 pg/mL (0-125); PROTEIN - SERUM 6.6 g/dL (6.4-8.2); TROPONIN-I < 0.017 ng/mL (0.000-0.060)
--- NOTE | 2020-12-18 21:49 | NUR ---
SANDWICH TRAY TO PT. SAM BY VICTORINO GARLAND
--- NOTE | 2020-12-18 21:50 | NUR ---
ATTEMPTED IV x3. Emily Quintana in room with patient attempting to get line.
[2020-12-18 22:57] LABS: APTT 36.9 SECONDS (22.8-39.4); INR 1.12 (0.85-1.17); PROTIME 13.3 SECONDS (11.6-15.0)
[2020-12-18 23:44] LABS: % SATURATION 9 % (15-55); IRON 44 ug/dl (35-150); TOTAL IRON BIND CAPACITY 445 ug/dl (260-445); UNSAT IRON BIND CAPACITY 401 ug/dl (150-375)
--- NOTE | 2020-12-18 23:45 | NUR ---
PT DID NOT RECIEVE 500CC BOLUS @1915 D/T NO IV ACCESS
[2020-12-19] VITALS (7 sets, daily range): BP systolic 131–148; BP diastolic 69–74; Ht 167.6 cm; Wt 71.4 kg
[2020-12-19 00:11] LABS: MAGNESIUM - SERUM 1.4 mg/dL (1.8-2.4)
--- NOTE | 2020-12-19 00:21 | NUR ---
REPORT CALLED TO JYOTSNA MURRAY
[2020-12-19 00:34] LABS: RETIC 0.92 % (0.45-2.28)
--- NOTE | 2020-12-19 00:37 | NUR ---
ALL MEDS DELAYED D/T NO IV ACCESS.
--- NOTE | 2020-12-19 01:06 | NUR ---
HUMALIN NOT IN PYXIS
[2020-12-19 01:13] LABS: CKMB 0.7 U/L (0.0-3.6); CREATINE KINASE 64 UL (21-232); TROPONIN-I < 0.017 ng/mL (0.000-0.060)
--- NOTE | 2020-12-19 01:14 | NUR ---
PT ARRIVED VIA W/C FROM ER. NO DISTRESS NOTED.
--- NOTE | 2020-12-19 01:59 | NUR ---
ADMISSION ASSESSMENT, HISTORY AND HOME MED LIST COMPLETED. NO DISTRESS NOTED. SR PER CM HR 90. ALERT AND ORIENTED TO PERSON, PLACE AND TIME. [place]. PALPABLE PERIPHERAL PULSES. LUNGS DIMINISHED IN BASES BILAT. IV TO RAC WITH ZITROMAX INFUSING AT 125CC/HR,. IV PATENT. PT STATES HAD 2ND MODERNA VACCINE END OF OCTOBER. PT ORIENTED TO BED CONTROLS, CALL LIGHT. SR UP X1, CALL LIGHT WITHIN REACH.
--- NOTE | 2020-12-19 03:08 | NUR ---
PT RESTING WITH EYES CLOSED. RESP EVEN AND REGULAR. SR UP X1, CALL LIGHT WITHIN REACH.
--- NOTE | 2020-12-19 04:24 | NUR ---
PT AWAKE; DENIES ANY DISCOMFORT. SR UP X1, CALL LIGHT WITHIN REACH.
[2020-12-19 06:16] LABS: BASOPHILS 0.3 % (0-2); EOSINOPHILS 0.1 % (0-7); HEMATOCRIT 41.3 % (42.0-54.0); HEMOGLOBIN 13.3 g/dL (13.5-17.5); LYMPHOCYTES 10.6 % (15-50); MCH 27.3 pg (26.0-34.0); MCHC 32.3 g/dL (31.0-37.0); MCV 84.4 fL (80.0-100.0); MEAN PLATELET VOLUME 7.2 fL (7.4-10.4); MONOCYTES 1.3 % (2-11); NEUTROPHILS 87.7 % (40-80); PLATELET COUNT 269 10x3/uL (130-400); RDW 19.9 % (11.5-14.5); WBC 6.5 10x3/uL (4.8-10.8)
--- NOTE | 2020-12-19 06:31 | NUR ---
AM EKG DONE. FSBS 152. PT DENIED ANY DISCOMFORT. NEEDS MET; WILL CONTINUE TO MONITOR.
[2020-12-19 06:49] LABS: ALBUMIN 3.8 g/dL (3.4-5.0); ALKALINE PHOSPHATASE 116 U/L (30-120); ALT (SGPT) 18 U/L (10-68); BILIRUBIN - TOTAL 0.25 mg/dL (0.2-1.3); CALC OSMOLALITY 268 mosm/kg (275-300); CALCIUM 9.4 mg/dL (8.5-10.1); CARBON DIOXIDE 22.4 mmol/L (21.0-32.0); CHLORIDE - SERUM 100 mmol/L (98-107); CKMB 0.5 U/L (0.0-3.6); CREATINE KINASE 60 UL (21-232); GLUCOSE 153 mg/dL (74-106); MAGNESIUM - SERUM 1.6 mg/dL (1.8-2.4); POTASSIUM - SERUM 4.7 mmol/L (3.5-5.1); PROTEIN - SERUM 7.2 g/dL (6.4-8.2); SODIUM 133 mmol/L (136-145); TROPONIN-I < 0.017 ng/mL (0.000-0.060); UREA NITROGEN 13 mg/dL (7-18); eGFR NON AFRICAN AMERICAN 79 mL/min (90-120)
--- NOTE | 2020-12-19 07:20 | NUR ---
RECIEVE REPORT. ALERT AND ORIENTED X4. SITTING UP IN BED. AT BEDSIDE. DENIES ANY NEEDS. CONTINUE PLAN OF CARE AND SAFETY PRECAUTIONS.
[2020-12-19 11:37] LABS: CKMB 0.6 U/L (0.0-3.6); CREATINE KINASE 54 UL (21-232); TROPONIN-I < 0.017 ng/mL (0.000-0.060)
--- NOTE | 2020-12-19 13:07 | CN ---
PATIENT NAME:SUNITHA DELGADO MEDICAL RECORD: [id number] : 54 LOCATION:D. D.2138 ADMIT DATE: 12/18/20 ACCOUNT: [id number] CONSULTING PHYSICIAN: JUAN GARAY MD REFERRING PHYSICIAN: CT VARGHESE MD DATE OF CONSULTATION: 12/19/2020 HISTORY OF PRESENT ILLNESS: The patient is a 70-year-old male with a history of atherosclerotic heart disease, PCI/stent, COPD, diabetes mellitus, who presented with complaints of dyspnea as well as some left-sided chest pain. The patient denies radiation to his symptoms. The patient undergoing COVID evaluation. Chart reviewed. PAST MEDICAL HISTORY: Significant for; 1. Atherosclerotic heart disease, history of PCI/stents. 2. Chest pain/discomfort. 3. Dyspnea. 4. COPD. 5. Diabetes mellitus. 6. COVID workup evaluation. MEDICATIONS: 1. Lovenox subQ 40 mg daily. 2. Protonix 40 mg daily. 3. Rocephin 1 gram IV q.24 hours. MEDICATIONS (OUTPATIENT): Albuterol inhalers, Plavix 75 mg daily, atenolol 50 mg daily, atorvastatin 10 mg daily, aspirin 81 mg daily, and Neurontin 300 mg t.i.d. DIAGNOSTIC DATA: EKG, normal sinus rhythm at 75 beats per minute with a right bundle branch block morphology. LABORATORY DATA: White blood cell count 6.5, hemoglobin and hematocrit 13.3 and 41.3, platelet count is 269. Sodium 133, potassium 4.7, BUN 13, creatinine is 1, troponin 0.017 (negative). Telemetry: Sinus rhythm, 95 beats per minute. PHYSICAL EXAMINATION: Chart reviewed. ASSESSMENT: 1. History of atherosclerotic heart disease. 2. History of percutaneous coronary intervention/stent. 3. History of chest pain/discomfort. 4. Chronic obstructive pulmonary disease. 5. Diabetes mellitus. 6. COVID evaluation. PLAN: Continue current medical management at this time. There is no evidence of acute cardiac decompensation/event at this time. No further cardiac workup indicated at this time. Further recommendations clinically indicated. Thank you for allowing me to participate in the care of this patient. CONSULT REPORT [id number] SUNITHA DELGAOD TRANSINT:[id number] Voice Confirmation ID: [id number] DOCUMENT ID: [id number] JUAN GARAY MD at 1307 CC: [id number] DICTATION DATE: 12/19/20909 ICE CARVER: 12/19/20 0937 ADM IN [place] [id number] [facility], [facility]
[2020-12-19] MEDS ORDERED: LISINOPRIL5 MG PO (14:51)
--- NOTE | 2020-12-19 15:00 | NUR ---
ALERT AND ORIENTED X4. SITTING UP IN BED. MED REC REVIEWED BY DAUGHTER. MED REC CORRECTED IN COMPUTER. OK TO RESTART MEDICATIONS PER PRERNA BRANTLEY.
--- NOTE | 2020-12-19 17:52 | NUR ---
ALERT AND ORIENTED X4. SITTING UP IN BED. [facility] WANTING TO LEAVE DUE TO COVID ISOLATION AND ALREADY RECIEVING VACCINES. EXPLAIN LEAVING WITHOUT BEING DISCHARGE WILL RESULT IN INSURANCE NOT PAYING FOR HOSPITAL VISIT. PATIENT REPLIES, "WELL I GUESS YOU JUST HAVE A WAY TO KEEP ME HERE." ENCOURAGE TO STAY UNTIL TOMORROW WHEN ABLE TO SPEAK WITH DOCTOR.
--- NOTE | 2020-12-19 20:00 | NUR ---
INITIAL ROUNDS COMPLETED AT 1925 HRS. PT DENEIS ANY DISCOMFORT OR NEEDS. CALL LIGHT WITHIN REACH.
--- NOTE | 2020-12-19 22:35 | NUR ---
ASSESSMENT COMPLETED AT 1925 HRS. VSS. SR PER CM HR 89. ALERT AND ORIENTED TOPERSON,PLACE AND TIME. [place]. PALPABLE PERIPHERAL PULSES. LUNGS ESSENTIALLY CTA. PT VERY UNHAPPY ABOUT BEING IN ISOLATION. EMOTIONAL SUPPORT GIVEN. INFORMED INFECTION CONTROL NURSE BACK IN AM AND HE CAN SPEAK TO HER. IV TO RAC WITH NS AT 75CC/HR. IV PATENT. PM FSBS 134. NO COVERAGE NEEDED. PM MEDS GIVEN. PT CURRENTLY WATCHING TV. SR UP X1, CALL LIGHT WITHIN REACH.
[2020-12-20 00:10] VITALS: BP 142/71
--- NOTE | 2020-12-20 00:23 | NUR ---
PT AWKAE; DENIES ANY DISCOMFORT OR NEEDS. CALL LIGHT WITHIN REACH.
--- NOTE | 2020-12-20 02:50 | NUR ---
PT WATCHING TV. NO DISTRESS NOTED.
--- NOTE | 2020-12-20 04:33 | NUR ---
NO CHANGE IN STATUS NOTED. ICE WATER GIVEN PER REQUEST.
[2020-12-20 04:47] VITALS: BP 149/75
[2020-12-20 05:39] LABS: MCHC 33.3 g/dL (31.0-37.0)
[2020-12-20 05:42] LABS: HEMATOCRIT 34.6 % (42.0-54.0); HEMOGLOBIN 11.5 g/dL (13.5-17.5); MCH 27.6 pg (26.0-34.0); MCV 82.9 fL (80.0-100.0); PLATELET COUNT 260 10x3/uL (130-400); RBC 4.18 10x6/uL (4.20-6.10)
[2020-12-20 06:01] LABS: ALBUMIN 3.1 g/dL (3.4-5.0); ALKALINE PHOSPHATASE 91 U/L (30-120); ALT (SGPT) 15 U/L (10-68); BILIRUBIN - TOTAL 0.16 mg/dL (0.2-1.3); CALC OSMOLALITY 266 mosm/kg (275-300); CALCIUM 8.7 mg/dL (8.5-10.1); CARBON DIOXIDE 24.7 mmol/L (21.0-32.0); CHLORIDE - SERUM 101 mmol/L (98-107); GLUCOSE 114 mg/dL (74-106); MAGNESIUM - SERUM 1.3 mg/dL (1.8-2.4); PROTEIN - SERUM 6.1 g/dL (6.4-8.2); SODIUM 133 mmol/L (136-145); UREA NITROGEN 12 mg/dL (7-18); eGFR NON AFRICAN AMERICAN 79 mL/min (90-120)
[2020-12-20 06:05] LABS: POTASSIUM - SERUM 3.9 mmol/L (3.5-5.1)
--- NOTE | 2020-12-20 06:10 | NUR ---
VSS THROUGHOUT NIGHT. SR PER CM. AM FSBS 123. NO COVERAGE PER S/S. NEEDS MET; WILL CONTINUE TO MONITOR.
[2020-12-20 06:15] LABS: WBC 10.2 10x3/uL (4.8-10.8)
--- NOTE | 2020-12-20 07:20 | NUR ---
RECIEVE REPORT. ALERT AND ORIENTED X4. SITTING UP IN BED. NO SIGNS OF DISTRESS. CONTINUE PLAN OF CARE AND SAFETY PRECAUTIONS.
[2020-12-20 08:06] VITALS: BP 145/67
[2020-12-20 11:06] VITALS: BP 120/58
[2020-12-20] MEDS ORDERED: NICODERM CQ1 EAC3 TRANSDERM (11:59)
[2020-12-20] MEDS ORDERED: MUCINEX600 MG PO (12:01)
[2020-12-20] MEDS ORDERED: OMNICEF300 MG PO (12:01)
[2020-12-20] MEDS ORDERED: FLORAJEN DIGES1 EACH PO (12:01)
[2020-12-20] MEDS ORDERED: AZITHROMYCIN500 MG PO (12:02)
[2020-12-20 12:26] LABS: EOSINOPHILS 2 % (0-7); LYMPHOCYTES 13 % (15-50); MONOCYTES 7 % (2-11); NEUTROPHILS 77 % (40-80)
[2020-12-20 12:27] LABS: CRENATED CELLS OCC; ROULEAUX OCC
[2020-12-20 13:07] LABS: PLATELET ESTIMATE NORMAL
--- NOTE | 2020-12-20 14:37 | NUR ---
ALERT AND ORIENTED X4. SITTING UP IN BED. DISCHARGE INSTRUCTIONS GIVEN VERBALLY AND WRITTEN. DISCHARGE PAPERS SIGNED ON CHART. DC RT AC IV TIP INTACT. CAB CALLED FOR TRANSPORT.
--- NOTE | 2020-12-20 16:45 | MORECARE ---
CASE MANAGEMENT DISCHARGE SUMMARY PATIENT: SUNITHA DELGADO UNIT: [id number] ADM DATE: 12/18/20 AGE: 70 : 52 SEX: M ROOM/BED: D.2138 AUTHOR: KRYSTAL,DOC PHYSICIAN: REFERRING PHYSICIAN: CT VARGHESE MD DATE OF SERVICE: 12/20/20 Case Management Discharge Planning Summary DCP REVIEW SUMMARY ANTICIPATED D/C DATE: 12/20/2020 EXPECTED LOS : 2 CASE STATUS: DCP Initiated INITIAL REVIEW: 12/18/2020 INITIAL REVIEWER: Lianna Hua FINAL DISCHARGE DISPOSITION: 01 : Home or Self Care (Routine Discharge) FINAL REVIEWER: FINAL REVIEW DATE: DCP Focus Questions & Answers QUESTION: ANSWER : PATIENT: SUNITHA DELGADO ENCOUNTER: [id number] MEDICAL RECORD#: [id number] ADMISSION DATE: 12/18/2020 DISCHARGE DATE: ATTENDING MD: : AGE: 70 MARITAL STATUS: W DC PLAN ID: [id number] FACILITY: [facility] PRINTED ON: 12/20/20 16:45 CT All edits/amendments must be made on the electronic document DICTATION DATE: 12/20/201644 MILLINERY WORKER: GE 12/20/201644 RPT#: [id number] DC DATE: STATUS: ADM IN [facility] [address] [place] [address] END OF REPORT
--- NOTE | 2020-12-21 13:32 | MORECARE ---
CASE MANAGEMENT DISCHARGE SUMMARY PATIENT: SUNITHA DELGADO UNIT: [id number] ADM DATE: 12/18/20 AGE: 70 : 52 SEX: M ROOM/BED: D.9188 AUTHOR: KRYSTAL,DOC PHYSICIAN: REFERRING PHYSICIAN: CT VARGHESE MD DATE OF SERVICE: 12/21/20 Case Management Discharge Planning Summary COMMENTS ENTERED DATE: 12/21/20 13:27 CT COMMENT TYPE: Discharge Planning REVIEWER: Lianna Hua CM met with patient to complete discharge planning assessment and offer availability of needed services. Patient states that he lives independently at home with his prior to admission. Pt verified that home environment is safe and has electricity and running water. Patient voices need for transportation as is is out of town with their only vehicle, he does have funds for services and medications if needed. PCP is Dr. Ames and patient uses [facility] as his pharmacy. CM offered and discussed home health, rehab services, and need for any medical equipment. Patient did not express need for offered services at this time. Transportation home will be provided by [employer]. DCP REVIEW SUMMARY ANTICIPATED D/C DATE: 12/20/2020 EXPECTED LOS : 2 CASE STATUS: DCP Initiated INITIAL REVIEW: 12/18/2020 INITIAL REVIEWER: Lianna Hua FINAL DISCHARGE DISPOSITION: 01 : Home or Self Care (Routine Discharge) FINAL REVIEWER: FINAL REVIEW DATE: DCP Focus Questions & Answers DCP Screen QUESTION: ANSWER High Risk Factors: : Hosp related to CHF, COPD, DM, End Stage Ds, CVA, CA DCP Evaluation QUESTION: ANSWER Patient and/or caregiver agree upon recommended discharge plan? : Yes Family / Caregiver's ability to cope with chronic illness: : a. Adequate (ability to meet patient's medical needs, ensures patient attends medical appts.) Patient's current cognitive status: : *Oriented to person, place, situation, time and present Patient's ability to cope with chronic illness : d. No chronic illness Does the patient have the ability to pay for or attain post discharge needs / services? : Yes Functional screen assessment: : Basic needs can adequately be met by self Family / Caregiver's ability to cope with chronic illness: : a. Adequate (ability to meet patient's medical needs, ensures patient attends medical appts.) Physical Status: : Independent with ADL's Equipment needed for post hospitalization: : None Is there a likelihood that the patient will require additional services to return to the preadmission environment? : No Living Arrangements: : Home with Spouse/Significant Other Results of this evaluation have been discussed with: : Patient Patient with capacity for self-care or can be cared for in same environment as prior to hospitalization? : Yes Baseline cognitive status: : *Oriented to person, place, situation, time and present Physical environment modification needed / anticipated for discharge: : N/A Medication Management: : Patient states they do have transportation to pickup driver medications Medication Management: : Patient states can afford medications Planned post hospital services available for patient? : N/A Pharmacy name(s): : [facility] Planned post hospital services covered by insurance plan? : N/A Does Patient have transportation to get home and to follow-up medical appointments when discharged from the hospital? : Yes Would patient like to participate in any Care Coordination programs (if applicable): : Not applicable Does the patient have electricity at home? : Yes Does the patient have running water in their house? : Yes Equipment in use: : None Mental health screen: : No mental health history Psychosocial status: : Independent adult (65+) Abuse/Neglect: : None Resources / Services in place: : None DCP Re-evaluation QUESTION: ANSWER Would patient like to participate in any Care Coordination programs (if applicable): : Not applicable PATIENT: SUNITHA DELGADO ENCOUNTER: [id number] MEDICAL RECORD#: [id number] ADMISSION DATE: 12/18/2020 DISCHARGE DATE: 12/20/2020 ATTENDING MD: MATTHEW: AGE: 70 MARITAL STATUS: W DC PLAN ID: [id number] FACILITY: [facility] PRINTED ON: 12/21/20 13:32 CT All edits/amendments must be made on the electronic document DICTATION DATE: 12/21/20 133 MEDICAL ADMINISTRATIVE TECHNICIAN: GE 12/21/20 133 RPT#: [id number] DC DATE:12/20/20 STATUS: DIS IN [facility] [address] [place] [address] END OF REPORT
== END 2020-12-20 16:51 | disposition home or self-care (01) | DRG 191 ==
LOC: D.ER 15:53 → D.M2 22:31 → D.EDHOLD 22:31 → D.M2 22:56
PROVIDERS: Emergency Medicine; Family Medicine; ADMIT Family Medicine; ATTEND Family Medicine
DX: J44.1 Chronic obstructive pulmonary disease with (acute) exacerbation (principal); E87.1 Hypo-osmolality and hyponatremia; F31.30 Bipolar disorder, current episode depressed, mild or moderate severity, unspecified; Z20.822 Contact with and (suspected) exposure to COVID-19; R94.31 Abnormal electrocardiogram [ECG] [EKG]; D64.9 Anemia, unspecified; I25.10 Atherosclerotic heart disease of native coronary artery without angina pectoris; E11.9 Type 2 diabetes mellitus without complications; K21.9 Gastro-esophageal reflux disease without esophagitis; F20.9 Schizophrenia, unspecified; F17.200 Nicotine dependence, unspecified, uncomplicated